=== PATIENT | female | born 1980 | race Caucasian/White ===

== ENCOUNTER 2017-07-29 03:11 | Emergency (ER) | payer OTHER ==
[~2017-07-29] VITALS: Ht 157.5 cm; Wt 113.4 kg
[2017-07-29] MEDS ORDERED: CHOL20002 PO (04:01)
[2017-07-29] MEDS ORDERED: AMIT25TA9 (04:01)
[2017-07-29] MEDS ORDERED: GABA-486 (04:01)
[2017-07-29] MEDS ORDERED: METH4TAB10 (04:01)
[2017-07-29] MEDS ORDERED: PROC10TA (04:01)
[2017-07-29] MEDS ORDERED: NORG1TAB14 (04:01)
[2017-07-29] MEDS ORDERED: SULF-222 (04:01)
[2017-07-29] MEDS ORDERED: PANT40TA3 (04:01)
[2017-07-29] MEDS ORDERED: LEVO25TA5 (04:01)
[2017-07-29] MEDS ORDERED: TIZA4TAB3 (04:01)
[2017-07-29] MEDS ORDERED: METF1000 (04:01)
[2017-07-29] MEDS ORDERED: ALPR0.5T7 (04:01)
[2017-07-29 04:25] LABS: BASOPHILS % (AUTO) 0 % (0-10); EOSINOPHILS # (AUTO) 0.2 10^3/uL (0.0-0.3); EOSINOPHILS % (AUTO) 2 % (0-10); LYMPHOCYTES # (AUTO) 1.8 X 10^3 (1.0-4.0); LYMPHOCYTES % (AUTO) 19 % (12-44); MEAN CORPUSCULAR HEMOGLOBIN 28 PG (25-34); MEAN CORPUSCULAR HGB CONC 32 G/DL (32-36); MEAN CORPUSCULAR VOLUME 85 FL (80-99); MEAN PLATELET VOLUME 9.9 FL (7.4-10.4); MONOCYTES # (AUTO) 0.8 X 10^3 (0.0-1.0); MONOCYTES % (AUTO) 8 % (0-12); NEUTROPHILS # (AUTO) 6.9 X 10^3 (1.8-7.8); NEUTROPHILS % (AUTO) 71 % (42-75); PLATELET COUNT 355 10^3/uL (130-400); RED BLOOD COUNT 3.93 10^6/uL (4.35-5.85); RED CELL DISTRIBUTION WIDTH 13.2 % (10.0-14.5); WHITE BLOOD COUNT 9.7 10^3/uL (4.3-11.0)
[2017-07-29 04:51] LABS: ANION GAP 11 MMOL/L (5-14); BLOOD UREA NITROGEN 16 MG/DL (7-18); BUN/CREATININE RATIO 19; CARBON DIOXIDE 21 MMOL/L (21-32); CHLORIDE 103 MMOL/L (98-107); CREATININE SERUM 0.83 MG/DL (0.60-1.30); POTASSIUM 4.1 MMOL/L (3.6-5.0); SODIUM 135 MMOL/L (135-145)
[2017-07-29 04:52] LABS: ALANINE AMINOTRANSFERASE 169 U/L (0-55); ALBUMIN 3.7 GM/DL (3.2-4.5); ASPARTATE AMINO TRANSFERASE 61 U/L (5-34); BILIRUBIN,TOTAL 0.4 MG/DL (0.1-1.0); CALCIUM 9.1 MG/DL (8.5-10.1); GFR ESTIMATED > 60; GLUCOSE 93 MG/DL (70-105); TOTAL PROTEIN 7.7 GM/DL (6.4-8.2)
[2017-07-29] MEDS ORDERED: LACTATED RINGERS 1,000 ML IV ONE (05:05)
--- NOTE | 2017-07-29 05:07 | ED Lower Extremity ---
General Chief Complaint: Lower Extremity Stated Complaint: LEFT LEG SWOLLEN,DISCOLORED,NUMB Nursing Triage Note: Pt amb to ED to report work about 16 hr shift and went during shift to [facility] for a steroid shot for sciatica left leg. Pt reports 0030 tonight noticed left leg looked swollen and deeper color/mottled appearance. Pt has taken a muscle relaxant [employer]. States left calf to foot feels numb/tingling. Nursing Sepsis Screen: No Definite Risk Source: patient Exam Limitations: no limitations History of Present Illness Time seen by provider: 04:57 Initial Comments Here With complaint of left leg pain that started within the last 24 hours. She 's been treated recently for sciatica symptoms including having Toradol shot which did not help. She states that her leg feels heavy and her leg feels numb. Also reports recently that she's had some shortness of breath with activity that would normally not make her short of breath and she is noted that her O2 sats have been dropping with activity and has gone down into the upper 80s. This is not normal for her. Denies chest pain specifically. Reports that her mother has history of DVT. She has never had blood clots before. She does take a baby aspirin because she was told her blood is thick. Onset: yesterday Severity: moderate Pain/Injury Location: left leg, left thigh Method of Injury: unknown Modifying Factors: Worse With Movement, Improves With Rest Allergies and Home Medications Allergies Coded Allergies: No Known Drug Allergies (Unverified , 07/29/17) Home Medications Alprazolam 0.5 Mg Tablet, (Reported) Amitriptyline HCl 25 Mg Tablet, (Reported) Cholecalciferol (Vitamin D3) 2,000 Unit Capsule, 2,000 UNIT PO DAILY, (Reported) Gabapentin 100 Mg Capsule, (Reported) Levothyroxine Sodium 25 Mcg Tablet, (Reported) Metformin HCl 1,000 Mg Tablet, (Reported) Methylprednisolone 4 Mg Tab.ds.pk, (Reported) Norgestimate-Ethinyl Estradiol 1 Each Tablet, (Reported) Pantoprazole Sodium 40 Mg Tablet.dr, (Reported) Prochlorperazine Maleate 10 Mg Tablet, (Reported) Sulfamethoxazole/Trimethoprim 1 Each Tablet, (Reported) Tizanidine HCl 4 Mg Tablet, (Reported) Constitutional: see HPI, No chills, No fever EENTM: see HPI Respiratory: see HPI, short of breath Cardiovascular: palpitations, No syncope Gastrointestinal: no symptoms reported Genitourinary: no symptoms reported Musculoskeletal: see HPI, muscle pain Skin: see HPI, change in color, No lesions Psychiatric/Neurological: No Symptoms Reported All Other Systems Reviewed Negative Unless Noted: Yes Past Hpkrrmt-Mneyqo-Okpdyy Hx Patient Social History Alcohol Use: Rarely Uses Recreational Drug Use: No Smoking Status: Never a Smoker 2nd Hand Smoke Exposure: No Recent Foreign Travel: No Contact w/Someone Who Travel: No Recent Infectious Disease Expo: No Recent Hopitalizations: No Seasonal Allergies Seasonal Allergies: No Surgeries History of Surgeries: Yes (L ovarian cyst w/ gangrene) Surgeries: Gallbladder, Oophorectomy, Tubal Ligation Respiratory History of Respiratory Disorde: No Cardiovascular History of Cardiac Disorders: No Neurological History of Neurological Disord: No Reproductive System Last Menstrual Period: Jul 28, 2017 Female Reproductive Disorders: Polycystic Ovarian Dis Genitourinary History of Genitourinary Disor: No Gastrointestinal History of Gastrointestinal Di: Yes Gastrointestinal Disorders: Gastroesophageal Reflux Musculoskeletal History of Musculoskeletal Dis: Yes (Sciatica) Endocrine History of Endocrine Disorders: Yes Endocrine Disorders: Hypothyroidsim HEENT History of HEENT Disorders: No Cancer History of Cancer: No Psychosocial History of Psychiatric Problem: No Integumentary History of Skin or Integumenta: No Reviewed Nursing Assessment Reviewed/Agree w Nursing PMH: Yes Family Medical History Significant Family History: No Pertinent Family Hx Physical Exam Vital Signs Vital Sign - Last 12Hours 07/29/17 03:36 Temp 97.2 Pulse 72 Resp 20 B/P (MAP) 117/81 Pulse Ox 97 O2 Delivery Room Air Capillary Refill : Less Than 3 Seconds General Appearance: WD/WN, no apparent distress HEENT: PERRL/EOMI, pharynx normal Neck: full range of motion, supple Cardiovascular: regular rate, rhythm, no murmur Respiratory: lungs clear, normal breath sounds Gastrointestinal: non tender, soft Legs: left leg non-tender, right leg normal inspection, right leg normal range of motion, right leg no evidence of injury, left leg swelling, left leg other ( swollen and slightly darker color than the other leg.) Knees: bilateral knee non-tender, bilateral knee normal inspection, bilateral knee normal range of motion, bilateral knee no evidence of injury Feet: bilateral foot other (bilateral posterior tibial and dorsalis pedis pulses equal and strong) Neurologic/Tendon: normal sensation, normal motor functions Neurologic/Psychiatric: alert, oriented x 3 Skin: warm/dry, other (color change to the left leg as described as above.) Progress/Results/Core Measures Results/Orders Lab Results Laboratory Tests Test 07/29/17 04:15 Range/Units White Blood Count 9.7 4.3-11.0 10^3/uL Red Blood Count 3.93 L 4.35-5.85 10^6/uL Hemoglobin 10.8 L 11.5-16.0 G/DL Hematocrit 34 L 35-52 % Mean Corpuscular Volume 85 80-99 FL Mean Corpuscular Hemoglobin 28 25-34 PG Mean Corpuscular Hemoglobin Concent 32 32-36 G/DL Red Cell Distribution Width 13.2 10.0-14.5 % Platelet Count 355 130-400 10^3/uL Mean Platelet Volume 9.9 7.4-10.4 FL Neutrophils (%) (Auto) 71 42-75 % Lymphocytes (%) (Auto) 19 12-44 % Monocytes (%) (Auto) 8 0-12 % Eosinophils (%) (Auto) 2 0-10 % Basophils (%) (Auto) 0 0-10 % Neutrophils # (Auto) 6.9 1.8-7.8 X 10^3 Lymphocytes # (Auto) 1.8 1.0-4.0 X 10^3 Monocytes # (Auto) 0.8 0.0-1.0 X 10^3 Eosinophils # (Auto) 0.2 0.0-0.3 10^3/uL Basophils # (Auto) 0.0 0.0-0.1 10^3/uL D-Dimer 3.22 H 0.00-0.49 UG/ML Sodium Level 135 135-145 MMOL/L Potassium Level 4.1 3.6-5.0 MMOL/L Chloride Level 103 98-107 MMOL/L Carbon Dioxide Level 21 21-32 MMOL/L Anion Gap 11 5-14 MMOL/L Blood Urea Nitrogen 16 7-18 MG/DL Creatinine 0.83 0.60-1.30 MG/DL Estimat Glomerular Filtration Rate > 60 BUN/Creatinine Ratio 19 Glucose Level 93 70-105 MG/DL Calcium Level 9.1 8.5-10.1 MG/DL Total Bilirubin 0.4 0.1-1.0 MG/DL Aspartate Amino Transf (AST/SGOT) 61 H 5-34 U/L Alanine Aminotransferase (ALT/SGPT) 169 H 0-55 U/L Alkaline Phosphatase 67 40-136 U/L Total Protein 7.7 6.4-8.2 GM/DL Albumin 3.7 3.2-4.5 GM/DL My Orders Orders - OLAF PIERRE MD Cbc With Automated Diff (07/29/17 04:04) Comprehensive Metabolic Panel (07/29/17 04:04) Fibrin Degradation Products (07/29/17 04:04) Saline Lock/Iv-Start (07/29/17 04:04) Us Venous Lower Ext Lt (07/29/17 04:56) Ct Angio Chest W (07/29/17 05:05) Lactated Ringers (Lr 1000 Ml Iv Solution (07/29/17 05:05) Apixaban Tablet (Eliquis Tablet) (07/29/17 06:30) Medications Given in ED Current Medications Medications Dose Ordered Sig/Wilmer Route Start Time Stop Time Status Last Admin Dose Admin Lactated Ringer's 1,000 ml @ 0 mls/hr Q0M ONCE IV 07/29/17 05:05 07/29/17 05:07 DC 07/29/17 05:56 999 MLS/HR Vital Signs/I&O Vital Sign - Last 12Hours 07/29/17 03:36 Temp 97.2 Pulse 72 Resp 20 B/P (MAP) 117/81 Pulse Ox 97 O2 Delivery Room Air Blood Pressure Mean: 93 Progress Note : Progress Note Seen and evaluated. IV and labs ordered. D-dimer grossly elevated. Ultrasound of left lower extremity ordered. CT angiogram chest ordered due to report of decreased O2 sats, higher heart rate and shortness of breath over the last couple of weeks. Lactated Ringer's 1 L bolus. Monitor patient. 0630: Bilateral pulmonary emboli noted on CT. I did discuss the case with Dr. Asher as for options of outpatient therapy. We will initiate Eliquis therapy at 10 mg and I will prescribe starter pack. Patient does not have findings of right heart strain on CT. Resting O2 sat is 9800 percent with heart rate of 72. 0700 I did discuss the findings and concerns with the patient. Ultrasound does not show a DVT on the left leg. The clot may be all within the long now. I did discuss extensively the risk and benefits of Eliquis including the risk of bleeding in the head, GI bleeding, urinary tract bleeding and generalized bleeding. We did discuss risk reduction strategies including limiting activities at would increase her risk for bleeding including for head injury and GI bleeds. I did instruct her to follow-up with her doctor this week for recheck and further evaluation and further prescription passed this month for her blood thinners. Patient verbalized understanding. Discharged home with return precautions. Patient verbalize understanding instructions and agreement with plan. Diagnostic Imaging Diagonstic Imaging: CT Plain Films/CT/US/NM/MRI: chest Comments Bilateral central, segmental and subsegmental pulmonary emboli. No saddle embolus. No right heart strain. Subpleural patchy groundglass opacities within the right upper lobe which may represent early pulmonary infarct. Installed findings of some centimeter mediastinal hilar lymph nodes. Heart and pericardium unremarkable. Upper abdomen demonstrates prior cholecystectomy. No acute osseous abnormality. Departure Impression Impression: Primary Impression: Pulmonary embolism Qualified Codes: I26.99 - Other pulmonary embolism without acute cor pulmonale Disposition: 01 HOME, SELF-CARE Condition: Stable Departure-Patient Inst. Decision time for Depature: 07:10 Referrals: KATRIN SCHULZ MD (PCP) Primary Care Physician EUGENE HARPER APRN (Family) Primary Care Physician Patient Instructions: Pulmonary Embolism (Blood Clot in the Lungs) (DC) Add. Discharge Instructions: All discharge instructions reviewed with patient and/or family. Voiced understanding. It is very important that he take your medicines as directed. Follow-up with your doctor this week for recheck and further evaluation and discuss further prescriptions related to the new findings of pulmonary embolism. You may need further evaluation including cardiac echocardiogram but you can discuss this with your doctor. Return for worse pain, fever, vomiting, weakness, breathing problems or other concerns as needed. Discussed with your doctor about continuing aspirin. Scripts Apixaban (Eliquis) 5 Mg Tablet 5 MG PO BID for 30 Days, #60 TAB Start this medicine after completing the 10 mg twice daily dosing for 7 days. Prov: OLAF PIERRE MD 07/29/17 Apixaban (Eliquis) 5 Mg Tablet 10 MG PO BID, #14 TAB 2 TABLETS TWICE DAILY X 7 DAYS Prov: OLAF PIERRE MD 07/29/17 OLAF PIERRE MD Jul 29, 2017 05:07
[2017-07-29] MEDS ORDERED: APIXABAN 5 MG (ELIQUIS) TABLET PO ONE (06:30)
[2017-07-29] MEDS ORDERED: APIX5TAB PO (07:18)
[2017-07-29 07:25] VITALS: BP 127/81
--- NOTE | 2017-07-29 08:22 | Diagnostic Imaging Report ---
PROCEDURE: US left lower extremity venous. TECHNIQUE: Multiple real-time grayscale images were obtained over the left lower extremity in various projections. Additional duplex Doppler and color Doppler images were also obtained. INDICATION: Leg pain and swelling There are no prior studies available for comparison. There is generally good blood flow and compressibility at all levels of the deep venous system. There is no evidence for deep venous thrombosis. IMPRESSION: There is no evidence for a deep venous thrombosis. Dictated by: Dictated on workstation # [id number]
--- NOTE | 2017-07-29 08:50 | Diagnostic Imaging Report ---
PROCEDURE: CT angiography of the chest with contrast. TECHNIQUE: Multiple contiguous axial images were obtained through the chest after uneventful bolus administration of intravenous contrast. Reconstructed CTA MIP acquisitions were also performed. INDICATION: Shortness of breath. There are no prior studies available for comparison. FINDINGS: There are bilateral central, segmental and subsegmental pulmonary emboli. The lungs are generally clear aside from a small wedge-shaped area of increased density along the periphery of the right upper lung. There are two other even smaller areas of increased density in the same area. These findings may be secondary to mild atelectasis/infiltrate. It would be less likely that they are related to early pulmonary infarct. There is no sign of a pleural effusion. The aorta is not abnormally dilated and the heart size is within normal limits. There are no coronary artery calcifications identified. There is no mediastinal or hilar adenopathy. The thyroid gland is generally unremarkable. There is no obvious breast mass. The sections through the upper abdomen show that the liver is of lower density than is usually seen. This does suggest fatty metamorphosis. There is no acute abnormality of the upper abdomen. The gallbladder is surgically absent. The bone windows are unremarkable for a fracture or for a destructive lesion. IMPRESSION: 1. There are bilateral pulmonary emboli. The small parenchymal densities in the right upper lobe may be secondary to mild pneumonia/atelectasis. The possibility that these are related to early pulmonary infarcts should also be considered. 2. There is no acute abnormality identified otherwise. 3. These results were conveyed to the ER by our [facility]. CRITICAL FINDING Dictated by: Dictated on workstation # [id number]
== END 2017-07-29 07:35 | disposition home or self-care (01) ==
LOC: EDUNIT# 03:11 → ER 03:19
DX: I26.99 Other pulmonary embolism without acute cor pulmonale (principal); K21.9 Gastro-esophageal reflux disease without esophagitis; E03.9 Hypothyroidism, unspecified; Z79.84 Long term (current) use of oral hypoglycemic drugs; Z98.51 Tubal ligation status; Z87.448 Personal history of other diseases of urinary system
CPT/HCPCS: 36415; 71275; 80053; 85025; 85379; 96360

== ENCOUNTER 2017-08-11 00:47 | Inpatient (IN) | payer OTHER ==
[~2017-08-11] VITALS: Ht 157.5 cm; Wt 115.3 kg
[~2017-08-11 00:47] MED LIST: ALPR0.5T7 PO; AMIT25TA9 PO; APIX5TAB PO; CHOL20002 PO; GABA-486 PO; LEVO25TA5 PO; METF1000 PO; METH4TAB10; NORG1TAB14 PO; PANT40TA3 PO; PROC10TA; SULF-222; TIZA4TAB3 PO
--- NOTE | 2017-08-11 01:11 | ED Lower Extremity ---
General Stated Complaint: POSS BLOOD CLOT IN LEFT LEG,SWOLLEN Source: patient, other Exam Limitations: no limitations History of Present Illness Time seen by provider: 01:01 Initial Comments Patient presents to ER by private conveyance from work where she says some time this evening she started developing swelling in her left lower extremity with firmness and pain to palpation over the medial anterior portion of her tibia. She says 2-3 weeks ago she was in the ER and diagnosed with a clot in the same leg that had went to her lungs. She was put on Eliquis which she has been taking. She says for the past couple days she's had some dull aches in the center of her chest which she assumed was just part of her resolving pulmonary embolism. She denies shortness of breath. She has no coronary history. No rash, diarrhea, nausea, vomiting, fever, chills. Allergies and Home Medications Allergies Coded Allergies: No Known Drug Allergies (Unverified , 07/29/17) Home Medications Alprazolam 0.5 Mg Tablet, (Reported) Amitriptyline HCl 25 Mg Tablet, (Reported) Apixaban 5 Mg Tablet, 10 MG PO BID, #14 2 TABLETS TWICE DAILY X 7 DAYS Prescribed by: OLAF PIERRE on 07/29/17 07 Apixaban 5 Mg Tablet, 5 MG PO BID for 30 Days, #60 Start this medicine after completing the 10 mg twice daily dosing for 7 days. Prescribed by: OLAF PIERRE on 07/29/1718 Cholecalciferol (Vitamin D3) 2,000 Unit Capsule, 2,000 UNIT PO DAILY, (Reported) Gabapentin 100 Mg Capsule, (Reported) Levothyroxine Sodium 25 Mcg Tablet, (Reported) Metformin HCl 1,000 Mg Tablet, (Reported) Methylprednisolone 4 Mg Tab.ds.pk, (Reported) Norgestimate-Ethinyl Estradiol 1 Each Tablet, (Reported) Pantoprazole Sodium 40 Mg Tablet.dr, (Reported) Prochlorperazine Maleate 10 Mg Tablet, (Reported) Tizanidine HCl 4 Mg Tablet, (Reported) Constitutional: No chills, No fever, No malaise EENTM: No ear discharge, No hearing loss Respiratory: No cough, No dyspnea on exertion, No short of breath Cardiovascular: see HPI, chest pain, No Hx of Intervention, No vascular heart diseas Gastrointestinal: No constipation, No diarrhea, No nausea, No vomiting Genitourinary: No discharge, No dysuria : No (tubal ligation and oophorectomy) Musculoskeletal: see HPI, No joint pain, No joint swelling, muscle pain (LLE), muscle stiffness Skin: No pruritus, No rash Psychiatric/Neurological: Denies Headache, Denies Numbness, Denies Paresthesia Past Pahjdyr-Pcbvda-Mdiczd Hx Patient Social History 2nd Hand Smoke Exposure: No Recent Foreign Travel: No Contact w/Someone Who Travel: No Recent Hopitalizations: No Seasonal Allergies Seasonal Allergies: No Surgeries History of Surgeries: Yes (L ovarian cyst w/ gangrene) Surgeries: Gallbladder, Oophorectomy, Tubal Ligation Respiratory History of Respiratory Disorde: No Cardiovascular History of Cardiac Disorders: No Neurological History of Neurological Disord: No Reproductive System Female Reproductive Disorders: Polycystic Ovarian Dis Genitourinary History of Genitourinary Disor: No Gastrointestinal History of Gastrointestinal Di: Yes Gastrointestinal Disorders: Gastroesophageal Reflux Musculoskeletal History of Musculoskeletal Dis: Yes (Sciatica) Endocrine History of Endocrine Disorders: Yes Endocrine Disorders: Hypothyroidsim HEENT History of HEENT Disorders: No Cancer History of Cancer: No Psychosocial History of Psychiatric Problem: No Integumentary History of Skin or Integumenta: No Family Medical History Significant Family History: No Pertinent Family Hx Physical Exam Vital Signs Vital Sign - Last 12Hours 08/11/17 01:06 Temp 98.7 Pulse 91 Resp 18 B/P (MAP) 164/103 Pulse Ox 99 O2 Delivery Room Air Capillary Refill : General Appearance: WD/WN, mild distress HEENT: PERRL/EOMI, pharynx normal Neck: non-tender, normal inspection Cardiovascular: normal peripheral pulses, regular rate, rhythm Respiratory: chest non-tender, lungs clear, normal breath sounds, no respiratory distress Gastrointestinal: normal bowel sounds, non tender, soft Back: normal inspection, no CVA tenderness Hips: bilateral hip non-tender, bilateral hip normal inspection, bilateral hip normal range of motion, bilateral hip no evidence of injury Legs: right leg non-tender, right leg normal inspection, bilateral leg normal range of motion, right leg no evidence of injury, left leg pain, left leg soft tissue tenderness, left leg swelling (firm, warm) Feet: bilateral foot other (capillary refill less than 3 seconds) Neurologic/Psychiatric: alert, normal mood/affect, oriented x 3 Skin: normal color, warm/dry Progress/Results/Core Measures Results/Orders Lab Results Laboratory Tests Test 08/11/17 01:20 Range/Units White Blood Count 12.1 H 4.3-11.0 10^3/uL Red Blood Count 4.03 L 4.35-5.85 10^6/uL Hemoglobin 10.9 L 11.5-16.0 G/DL Hematocrit 35 35-52 % Mean Corpuscular Volume 87 80-99 FL Mean Corpuscular Hemoglobin 27 25-34 PG Mean Corpuscular Hemoglobin Concent 31 L 32-36 G/DL Red Cell Distribution Width 13.9 10.0-14.5 % Platelet Count 487 H 130-400 10^3/uL Mean Platelet Volume 8.8 7.4-10.4 FL Neutrophils (%) (Auto) 71 42-75 % Lymphocytes (%) (Auto) 21 12-44 % Monocytes (%) (Auto) 5 0-12 % Eosinophils (%) (Auto) 3 0-10 % Basophils (%) (Auto) 1 0-10 % Neutrophils # (Auto) 8.6 H 1.8-7.8 X 10^3 Lymphocytes # (Auto) 2.6 1.0-4.0 X 10^3 Monocytes # (Auto) 0.6 0.0-1.0 X 10^3 Eosinophils # (Auto) 0.4 H 0.0-0.3 10^3/uL Basophils # (Auto) 0.1 0.0-0.1 10^3/uL Prothrombin Time 13.6 12.2-14.7 SEC INR Comment 1.0 0.8-1.4 Activated Partial Thromboplast Time 30 24-35 SEC Sodium Level 139 135-145 MMOL/L Potassium Level 3.6 3.6-5.0 MMOL/L Chloride Level 104 98-107 MMOL/L Carbon Dioxide Level 25 21-32 MMOL/L Anion Gap 10 5-14 MMOL/L Blood Urea Nitrogen 13 7-18 MG/DL Creatinine 0.78 0.60-1.30 MG/DL Estimat Glomerular Filtration Rate > 60 BUN/Creatinine Ratio 17 Glucose Level 96 70-105 MG/DL Calcium Level 9.0 8.5-10.1 MG/DL Total Bilirubin 0.7 0.1-1.0 MG/DL Aspartate Amino Transf (AST/SGOT) 37 H 5-34 U/L Alanine Aminotransferase (ALT/SGPT) 81 H 0-55 U/L Alkaline Phosphatase 85 40-136 U/L Total Protein 8.1 6.4-8.2 GM/DL Albumin 4.0 3.2-4.5 GM/DL My Orders Orders - REGINENIR Jeff Us Venous Lower Ext Lt (08/11/17 00:58) Cbc With Automated Diff (08/11/17 00:58) Comprehensive Metabolic Panel (08/11/17 00:58) Protime With Inr (08/11/17 00:58) Partial Thromboplastin Time (08/11/17 00:58) Saline Lock/Iv-Start (08/11/17 00:58) Heparin Drip [id number] Unit/500ml (Heparin (08/11/17 01:18) Heparin (Bolus Per Protocol) (Heparin (B (08/11/17 01:30) Ct Angio Chst/Abd/Pelv W (08/11/17 02:17) Ns Iv 1000 Ml (Sodium Chloride 0.9%) (08/11/17 02:20) Medications Given in ED Current Medications Medications Dose Ordered Sig/Wilmer Route Start Time Stop Time Status Last Admin Dose Admin Heparin Sodium (Porcine) 5,000 unit ONCE ONCE IV 08/11/17 01:30 08/11/17 01:31 DC 08/11/17 01:35 5,000 UNIT Heparin Sodium/ Dextrose 500 ml @ 0 mls/hr Q0M ONCE IV 08/11/17 01:18 08/11/17 01:20 DC 08/11/17 01:35 24 MLS/HR Sodium Chloride 1,000 ml @ 0 mls/hr Q0M ONCE IV 08/11/17 02:20 08/11/17 02:21 DC 08/11/17 03:27 0 MLS/HR Vital Signs/I&O Vital Sign - Last 12Hours 08/11/17 01:06 Temp 98.7 Pulse 91 Resp 18 B/P (MAP) 164/103 Pulse Ox 99 O2 Delivery Room Air Progress Note #1: Time: 02:09 Progress Note Nothing unexpected seen in her labs. She says she has plans for workup of her persistently elevated transaminases outpatient already. Her mild leukocytosis might be indicative of reforming thrombus. We'll obtain an ultrasound of her leg looking for a new clot and if positive we'll get a CTA chest. On the assumption that she might be having a recurrent pulmonary embolism despite anticoagulation we will start her also on a heparin drip. Progress Note #2: Time: 02:19 Progress Note She has no elevated white count but she's not got a clot in her leg. Defervesced some swelling in her leg does not look inflammatory or infectious. The flow in the venous Doppler was monophasic which makes me worry about an obstruction further up in the abdomen or chest. Her creatinine is 0.7 so we'll go ahead and obtain a CT angiogram of her chest abdomen and pelvis. Her liver enzymes are elevated as well. Diagnostic Imaging Diagonstic Imaging: Ultrasound Plain Films/CT/US/NM/MRI: leg (left) Comments No clot in the leg however monophasic flow indicates some further upstream obstruction. Negative for DVT. Soft tissue swelling. Reviewed: Reviewed [facility], Reviewed by Me Diagonstic Imaging: CT (angio) Plain Films/CT/US/NM/MRI: chest, abdomen, pelvis Comments Clot seen in the IVC extending into the left iliac. Read demonstration of pulmonary embolus in the slight interval decrease in the extent of tumor thrombosis burden bilaterally. No evidence for aortic dissection. No pericardial effusion or pleural effusion. Small mediastinal lymph nodes, unchanged chest and likely reactive area and tiny nodule in the superior segment of the right lower lobe unchanged and likely benign. Overall improved aeration with decreasing peripheral opacities in the right upper lobe. No new consolidation. Small hiatal hernia. Abdomen pelvis: Abdominal aorta demonstrates normal caliber without evidence for dissection. Suspect a nonocclusive thrombus in the central aspect of IVC is seen on coronal images 3839 series 11 area and is appears to partly extend the left common iliac vein. Slight heterogenous enhancement of the liver with focal wedge- shaped hyperenhancement in the anterior right hepatic lobe, nonspecific and may reflect perfusion anomaly. Follow-up is indicated. Prominent common bile duct likely related to prior cholecystectomy. No free fluid. Reviewed: Reviewed [facility], Reviewed by Me Departure Communication (Admissions) Time/Spoke to Admitting Phy: 04:[address] Barry and discussed the case, imaging, lab. Discussed the history of elevated liver enzymes the liver enhancement as well as the new clot seen in the IVC and subsequent swelling in the left leg. He is okay with 10 mg of warfarin now and continuing the heparin drip and he will see the patient. 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 Referrals: KATRIN SCHULZ MD (PCP) Primary Care Physician EUGENE HARPER APRN (Family) Primary Care Physician NIR WEINER Aug 11, 2017 01:11
[2017-08-11] MEDS ORDERED: HEParin DRIP 25000 UNIT/500ML 500 ML IV ONE (01:18)
[2017-08-11 01:29] LABS: BASOPHILS # (AUTO) 0.1 10^3/uL (0.0-0.1); BASOPHILS % (AUTO) 1 % (0-10); EOSINOPHILS # (AUTO) 0.4 10^3/uL (0.0-0.3); EOSINOPHILS % (AUTO) 3 % (0-10); LYMPHOCYTES # (AUTO) 2.6 X 10^3 (1.0-4.0); LYMPHOCYTES % (AUTO) 21 % (12-44); MEAN CORPUSCULAR HEMOGLOBIN 27 PG (25-34); MEAN CORPUSCULAR HGB CONC 31 G/DL (32-36); MEAN CORPUSCULAR VOLUME 87 FL (80-99); MEAN PLATELET VOLUME 8.8 FL (7.4-10.4); MONOCYTES # (AUTO) 0.6 X 10^3 (0.0-1.0); MONOCYTES % (AUTO) 5 % (0-12); NEUTROPHILS # (AUTO) 8.6 X 10^3 (1.8-7.8); NEUTROPHILS % (AUTO) 71 % (42-75); PLATELET COUNT 487 10^3/uL (130-400); RED BLOOD COUNT 4.03 10^6/uL (4.35-5.85); RED CELL DISTRIBUTION WIDTH 13.9 % (10.0-14.5); WHITE BLOOD COUNT 12.1 10^3/uL (4.3-11.0)
[2017-08-11] MEDS ORDERED: HEParin 1000 UNIT/ML (10ML VIAL) FOR BOLUS IV ONE (01:30)
[2017-08-11 01:35] LABS: PROTHROMBIN TIME PATIENT 13.6 SEC (12.2-14.7)
[2017-08-11 01:45] LABS: ALANINE AMINOTRANSFERASE 81 U/L (0-55); ANION GAP 10 MMOL/L (5-14); ASPARTATE AMINO TRANSFERASE 37 U/L (5-34); BILIRUBIN,TOTAL 0.7 MG/DL (0.1-1.0); BLOOD UREA NITROGEN 13 MG/DL (7-18); BUN/CREATININE RATIO 17; CARBON DIOXIDE 25 MMOL/L (21-32); CHLORIDE 104 MMOL/L (98-107); CREATININE SERUM 0.78 MG/DL (0.60-1.30); GFR ESTIMATED > 60; GLUCOSE 96 MG/DL (70-105); POTASSIUM 3.6 MMOL/L (3.6-5.0); SODIUM 139 MMOL/L (135-145); TOTAL PROTEIN 8.1 GM/DL (6.4-8.2)
[2017-08-11] MEDS ORDERED: NS IV 1000 ML 1,000 ML IV ONE (02:20)
[2017-08-11 05:05] VITALS: BP 125/81
[2017-08-11] MEDS ORDERED: ACETAMINOPHEN 500 MG TAB (TYLENOL) PO PRN ×2 (05:45→11:00)
[2017-08-11] MEDS ORDERED: HEParin DRIP 25000 UNIT/500ML (ACS THERAPY) IV SCH (05:45)
[2017-08-11] MEDS ORDERED: ONDANSETRON 4 MG/2 ML (SDV) Z0FRAN IV PRN (05:45)
[2017-08-11] MEDS ORDERED: warFARin 10 MG (COUMADIN) TAB PO ONE (05:45)
--- NOTE | 2017-08-11 05:53 | Diagnostic Imaging Report ---
PROCEDURE: US left lower extremity venous. INDICATION: Left lower extremity pain and swelling EXAMINATION: Grayscale and color Doppler evaluation of the deep veins of the left lower extremity were performed with waveform analysis. FINDINGS: Continuous venous flow is present. No intraluminal filling defect is identified. There is normal compressibility and response to augmentation. No abnormal perivascular fluid collection is identified. IMPRESSION: No ultrasound evidence of left lower extremity deep venous thrombosis. Dictated by: Dictated on workstation # [id number]
[2017-08-11] MEDS ORDERED: NS 100 ML (IVPB) BAG IV ONE (06:15)
[2017-08-11] MEDS ORDERED: IOHEXOL 350 MG/ML 150 ML (OMNIPAQUE 350) VIAL IV ONE (06:15)
[2017-08-11] MEDS ORDERED: INFLUENZA TRIvalent 2017-2018 0.5 ML/45 MCG SYR IM ONE (07:30)
[2017-08-11] MEDS ORDERED: CATHETER FLUSH 10 ML SYR IV PRN (07:45)
[2017-08-11 08:00] VITALS: BP 118/65
--- NOTE | 2017-08-11 08:43 | Diagnostic Imaging Report ---
PROCEDURE: CT angiography of the chest with contrast and CT abdomen and pelvis with contrast. TECHNIQUE: Multiple contiguous axial images were obtained through the chest, abdomen, and pelvis after administration of intravenous contrast. Reconstructed MIP CT angiography acquisitions of the aorta were then performed. INDICATION: Left leg swelling. CONTRAST: 145 mL of Omnipaque 350 was administered intravenously. COMPARISON: 07/29/2017. FINDINGS: CT ANGIOGRAM OF THE CHEST: There are bilateral pulmonary emboli involving the distal aspect of the left main pulmonary artery and the right lower lobe pulmonary artery extending to the segmental branches of the lower lobes on both sides. The PE is slightly improved when compared to the previous exam of 07/29/2017. There are still, however, significant emboli. There is no pleural or pericardial effusion. The thoracic aorta is normal in caliber. No dissection or aneurysm. The mediastinum demonstrates no mass or significant lymphadenopathy. No hilar lymphadenopathy. The axilla demonstrates no lymphadenopathy. The lungs demonstrate no significant consolidation or mass. There is a nonspecific nodular density along the upper aspect of the right major fissure measuring 5 mm in size, axial image 50, similar to the previous recent exam. No older exam to compare. The osseous structures demonstrate no significant abnormality. CT ANGIOGRAM OF THE ABDOMEN AND PELVIS: There are filling defects seen in the common iliac veins, particularly prominent in the left common iliac vein, with slight extension into the left internal iliac and minimal extension to the left external iliac veins. This appears to be largely nonocclusive. Minimal extension of the thrombus within the upper aspect of the right common iliac vein is seen. The thrombus extends within the IVC up to the renal veins level. The suprarenal IVC demonstrates no thrombus. The liver, spleen, pancreas, and adrenal glands appear unremarkable. Cholecystectomy clips are seen. The kidneys have symmetric enhancement and contrast excretion. There is no hydronephrosis. The abdominal aorta is normal in caliber. No periaortic significantly enlarged lymph node is seen. No pelvic free fluid or fluid collection is seen. Surgical clips are seen in the right adnexa. IMPRESSION: CTA CHEST: Minimally improved pulmonary emboli when compared to 07/29/2017. CTA ABDOMEN AND PELVIS: Partially occlusive thrombus involving the left internal iliac, left external iliac, left common iliac, and the right common iliac veins with extension into the IVC up to the level of the renal veins. This reading agrees with the [facility] report. Dictated by: Dictated on workstation # [id number]
[2017-08-11] MEDS ORDERED: APIX5TAB PO (10:21)
[2017-08-11] MEDS ORDERED: HYDR-3812 PO (10:23)
[2017-08-11] MEDS ORDERED: ACET-2267 PO (10:33)
--- NOTE | 2017-08-11 10:54 | History & Physical-Hospitalist ---
HPI History of Present Illness: HPI/Chief Complaint CC: Pulmonary embolism HPI: This is a [address] Almodovar who presented to ER with left leg, ankle , and foot swelling. CT chest showed minimally improved PE but extension of the DVT into the pelvis. Pharmacy Review: Pt was taking Eliquis. Pt has not yet been interviewed to whether or not she failed Eliquis treatment. 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 Pt denies SOB or jaw pain Leg was marked Pt does not have an Echo Pt denies smoking Pt on control Patient Interview: Pt confirms PCP as Dr. Almodovar, but sees a nurse practitioner at his [place] clinic. Pt confirms being in to the ER two weeks ago. Pt reports that she was given Eliquis for PE and took it twice daily. Pt states she stopped the hormones Pt confirms having swelling for a while after DC from ER. Pt states she was walking on it then the swelling worsened yesterday in her leg, ankle, and foot. Pt states she believed she has another clot so she returned and had a CT. Pt states she would rather be on Eliquis than Coumadin. 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 Pt denies need for pain meds currently. Pt states she was prescribed hydrocodone, but she only takes them when her pain is very bad. Pt states she generally takes Tylenol for her pain. Pt confirms family hx of blood clots on both sides Pt denies smoking and denies traveling recently Pt denies having previous blood clots Pt states she has 3 kids and had no problems when . Pt denies problems becoming . Pt states she had been on hormones for polycystic ovarian syndrome. Pt confirms being prescribed Sprintec by Dr. Anderson; he wanted the pt to take this for at least 4 months, which she states she completed. Physical exam stable. Lungs sound perfect. Pt denies heart or lung problems previously Pt expressed her worries about why she is having blood clots Pt confirms chest discomfort. Pt states that the ER doctor thought this was residual from the clots Pt was informed that a [employer] [facility] will be conferred with about failure of Eliquis Pt confirms having a previous EKG Mother confirms hx of blood clots and in family, and denies testing for blood clotting. Mother confirms having AFib Dr Cutler spoke to Dr Meek who will see the patient in consultation Dr Lakeshia gu with nurse at Dr Anderson's office. Scribed by Rosina Ramos under the direct supervision of Dr. Cutler. Source: patient, family Date Seen 08/11/17 Time Seen by Provider: 10:15 Attending Physician Sebastien Barry MD PCP Eron Almodovar MD Referring Physician Date of Admission Aug 11, 2017 at 04:45 Home Medications & Allergies Home Medications Reviewed patient Home Medication Reconciliation Form Allergies Allergies Coded Allergies No Known Drug Allergies (Unverified07/29/17) Past [id number]-Yldqdt Hx Patient Social History Marrital Status: Employed/Student: employed ([employer]) Alcohol Use: Denies Use Recreational Drug Use: No Smoking Status: Never a Smoker 2nd Hand Smoke Exposure: No Physical Abuse Screen: No Sexual Abuse: No Recent Foreign Travel: No Contact w/other who traveled: No Recent Hopitalizations: Yes (PE) Recent Infectious Disease Expo: No Immunizations Up To Date Tetanus Booster (TDap): Unknown Seasonal Allergies Seasonal Allergies: No Surgeries Yes (OVARIAN CYST) Gallbladder, Oophorectomy, Tubal Ligation Respiratory No Cardiovascular No Neurological No Reproductive System : No Female Reproductive Disorders: Polycystic Ovarian Dis Genitourinary No Gastrointestinal Yes Gastroesophageal Reflux Musculoskeletal Yes (Sciatica) Endocrine History of Endocrine Disorders: Yes Endocrine Disorders: Hypothyroidsim HEENT History of HEENT Disorders: No Cancer No Psychosocial History of Psychiatric Problem: No Integumentary History of Skin or Integumenta: No Blood Transfusions History of Blood Disorders: Yes Adverse Reaction to a Blood Tr: No Family Medical History Significant Family History: No Pertinent Family Hx Review of Systems Constitutional: see HPI EENTM: no symptoms reported Respiratory: dyspnea on exertion Cardiovascular: chest pain Gastrointestinal: no symptoms reported Genitourinary: no symptoms reported Musculoskeletal: joint pain, muscle stiffness, muscle cramps Skin: no symptoms reported Psychiatric/Neurological: No Symptoms Reported All Other Systems Reviewed Negative Unless Noted: Yes Physical Exam Physical Exam Vital Signs Vital Sign - Last 12Hours 08/11/17 01:06 Temp 98.7 Pulse 91 Resp 18 B/P (MAP) 164/103 Pulse Ox 99 O2 Delivery Room Air Capillary Refill : Less Than 3 Seconds General Appearance: No Apparent Distress, WD/WN, Obese Eyes: Bilateral Eye Normal Inspection, Bilateral Eye PERRL HEENT: PERRL/EOMI, Normal ENT Inspection, Pharynx Normal Neck: Full Range of Motion, Normal Inspection, Non Tender, Supple, Carotid Bruit Respiratory: Chest Non Tender, Lungs Clear, Normal Breath Sounds, No Accessory Muscle Use, No Respiratory Distress Cardiovascular: Regular Rate, Rhythm, No Edema, No Gallop, No JVD, No Murmur, Normal Peripheral Pulses Gastrointestinal: Normal Bowel Sounds, No Organomegaly, No Pulsatile Mass, Non Tender, Soft Back: Normal Inspection, No CVA Tenderness, No Vertebral Tenderness Extremity: Normal Capillary Refill, Normal Inspection, Calf Tenderness (left), Pedal Edema (left leg), Swelling (left) Neurologic/Psychiatric: Alert, Oriented x3, No Motor/Sensory Deficits, Normal Mood/Affect Skin: Normal Color, Warm/Dry Lymphatic: No Adenopathy Results Results/Procedures Lab Laboratory Tests 08/11/17 01:20 Assessment/Plan Admission Diagnosis Assessment: Worsened DVT left leg with no change in PE while on Eliquis BCP usage x 4 months but stopped 3 weeks ago when blood clot was dx FH of DVT PCOS managed by Dr Anderson and placed on BCP 4 months ago Obesity Assessment and Plan Plan: Echocardiogram Confer with Dr. Anderson Confer with Tailings Man Dr. Meek Heparin drip Coumadin? Diagnosis/Problems Diagnosis/Problems (1) Pulmonary embolism Status: Acute Qualifiers: Qualified Codes: I26.09 - Other pulmonary embolism with acute cor pulmonale (2) Embolism and thrombosis of left iliac vein Status: Acute (3) Currently on parenteral anticoagulation and warfarin overlap therapy Status: Acute (4) Inferior vena cava embolism Status: Acute (5) PCOS (polycystic ovarian syndrome) Status: Chronic (6) Obesity Status: Chronic Qualifiers: Clinical Quality Measures DVT/VTE Risk/Contraindication: Risk Factor Score Per Nursin RFS Level Per Nursing on Admit: 4+=Very High TERRANCE CUTLER DO Aug 11, 2017 10:54
[2017-08-11] MEDS ORDERED: GABAPENTIN 100 MG (NEURONTIN) CAP PO PRN (11:00)
[2017-08-11] MEDS ORDERED: ALPRAZolam 0.5 MG (XANAX) TAB PO PRN (11:00)
[2017-08-11] MEDS ORDERED: HYDROcodone/APAP 5 MG/325 MG (LORTAB) TAB PO PRN (11:30)
[2017-08-11 12:00] VITALS: BP 133/78
[2017-08-11 16:08] VITALS: BP 116/77
[2017-08-11 20:00] VITALS: BP 132/84
[2017-08-11] MEDS ORDERED: AMITRIPTYLINE 25 MG (ELAVIL) TAB PO SCH (21:00)
[2017-08-12] VITALS: BP 103/70
[2017-08-12 04:01] VITALS: BP 138/84
[2017-08-12] MEDS ORDERED: LEVOTHYROXINE 25 MCG (LEVOTHROID) TAB PO SCH (06:30)
[2017-08-12] MEDS ORDERED: PANTOPRAZOLE 40 MG (PROTONIX) TAB PO SCH (07:00)
[2017-08-12] MEDS ORDERED: VITAMIN D3 1,000 UNITS (CHOLECALCIFEROL) TABLET PO SCH (07:00)
[2017-08-12 07:31] VITALS: BP 129/86
--- NOTE | 2017-08-12 10:22 | CONSULTATION REPORT ---
DATE OF SERVICE: 08/11/2017 REFERRING AND PRIMARY PHYSICIAN: TERRANCE CUTLER DO The patient is admitted to room #424. IMPRESSION: A 36-year-old female admitted with: 1. Increased left lower extremity swelling and discomfort. 2. The patient diagnosed with PE on 07/29/2017 and started on anticoagulation with the Eliquis. 3. Lower extremity ultrasound was negative with no identifiable source of thrombus at that time. 4. At current admission, CT scan of the chest, abdomen and pelvis as per last lower extremity sonogram, completed. Angiogram of the chest showed evidence of PE, which is better than [address] scan of the abdomen and pelvis showed venous thrombosis in the left common iliac vein, extending into both internal and external iliac as well as up to the inferior vena cava till the renal veins. 5. Strong family history of thrombosis on both paternal and maternal side of family, rule out thrombophilia. 6. Previous use of control pills for the last 4 months for PCOS, which was stopped 2 weeks ago at the time of diagnosis of pulmonary embolus. 7. Obesity with the weight of 115 kilogram and BMI of approximately 45. 8. Elevated transaminases, most likely due to fatty infiltration of liver, which was seen in the current CT scan of the abdomen. RECOMMENDATIONS: 1. I will obtain factor II and factor V mutation analysis today to rule out thrombophilia. Still she is on anticoagulation, I will not be able to do the rest of the thrombophilia workup. 2. I had a lengthy discussion with the patient regarding resuming Eliquis versus continuing heparin and transitioning to warfarin. Because of her obesity, she is borderline with her weight as far as the use of Eliquis is concerned. 3. Current CT angiogram of the chest had shown improvement in the PE while she was on Eliquis and because of this reason, she could resume this. Since she had a break of a day, I would recommend restarting Eliquis at 10 mg b.i.d. x1 week and then 5 mg twice daily. 4. Because of the lower extremity pain, which is most likely due to phlebitis, I advised the patient to use NSAIDs for a few days to control this. I also advised her to use a light compression stocking to control the swelling. 5. I strongly advised the patient to avoid any control pills or hormonal agents in the future. 6. I also advised to start a diet and exercise program to reduce her weight and if this alone does not improve the fatty infiltration of liver, she may need other treatments for this. 7. I would like to [facility] approximately 2 months. If she is having any new or unusual symptoms prior to that, she was instructed to contact us. BRIEF HISTORY: The patient is a 36-year-old female who was diagnosed with a polycystic ovarian syndrome and started on control pills 4 months ago. Two weeks ago, she presented to the emergency room with shortness of breath and was found to have pulmonary embolism, but the source was not identified. She had a CT angiogram of the chest as well as bilateral lower extremity sonograms during that visit. She was started on anticoagulation with the Eliquis and discharged home. The patient was compliant with her medications, but on 08/10/2017, she started having increased swelling and discomfort in the left lower extremity and came back to the emergency room. This time, she had a CT angiogram of the chest as well as CT scan of the abdomen and pelvis as well as left lower extremity sonogram. The left lower extremity sonogram did not show any evidence of thrombosis. CT angiogram of the chest showed a previously seen PEs, which were slightly better. CT scan of the abdomen and pelvis showed evidence of thrombosis in the left common iliac vein extending to the left internal and external iliac veins as well as in to the inferior vena cava up to the level of the renal veins. There was no complete obstruction and flow was noted. Because of the question of failure to Eliquis, she was admitted and started on heparin nomogram. Hematology consultation was obtained for further recommendations. PAST MEDICAL HISTORY: Significant for hypothyroidism for which she is taking replacement. She has history of gastroesophageal reflux and uses [id number] medications for this. She was diagnosed with the polycystic right ovary and started on control pills 4 months ago. She has had previous left oophorectomy in the past. PAST SURGICAL HISTORY: Other surgeries include a cholecystectomy and a tubal ligation. FAMILY HISTORY: Significant for her mother who had thrombosis at the age of 41 years and had a CVA at the later age, probably related to atrial fibrillation. Both her maternal grandparents had thrombosis, but patient does not know the details of this. Paternal grandmother had DVT, but patient does not remember at what age this happened. Her first cousin on the paternal side of family had DVT while in his late 30s. SOCIAL HISTORY: The patient is and lives in [place], [place]. She has 3 children; a son aged 19 years, a daughter aged 18 years and another son aged 14 years. The 14-year-old lives with her at home. 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 She denied any tobacco use. No alcohol or other recreational drug use. PHYSICAL EXAMINATION: GENERAL: Today, showed a young female, obese, anxious, but otherwise in no acute distress. VITAL SIGNS: Temperature was 97.8, pulse rate of 74, respirations 20, blood pressure 118/65 with the oxygen saturation of 97% on room air. Her height was 157.48 cm and weight was 115.3 kilograms with a BSA of 2.32 and BMI of 46.5 kg/m2. HEENT: Normocephalic, extraocular muscles intact, conjunctivae pink, oral mucosa moist. NECK: Supple with no JVD. No cervical, supraclavicular or axillary lymphadenopathy palpable. CHEST: Symmetrical. LUNGS: Fairly clear to auscultation without wheezes or rales. CARDIOVASCULAR: Regular in rate and rhythm without murmurs or gallops. ABDOMEN: Obese, soft, nontender with no hepatosplenomegaly or other masses palpable. EXTREMITIES: Showed 2+ edema of the left lower extremity without erythema. There was no increased warmth on touch. There is tenderness in the left leg without any cords palpable. Rest of the extremities showed no edema. NEUROLOGICAL: Showed no focal motor deficits. LABORATORY WORK: CBC done today showed WBC 12.1, hemoglobin 10.9, MCV 87, platelet count 487,000 with neutrophil count of 8.6. Chemistry panel showed normal electrolytes. BUN was 13 and creatinine 0.78 with GFR more than 60 mL per minute. AST was elevated at 37 and ALT was elevated at 81 with rest of the liver function studies within normal limits. ProTime done last night at the emergency room had shown to be normal at 13.6 with an INR of 1.0 and PTT was normal at 30. CT angiogram of the chest as well as abdomen and pelvis done yesterday at the emergency room was reviewed. CT angiogram of the chest showed bilateral pulmonary emboli involving the distal aspect of left main pulmonary artery and the right lower lobe pulmonary artery. There is minimal improvement when compared to the CT angiogram from 07/29/2017. CT angiogram of the abdomen and pelvis showed partially occlusive thrombus involving the left internal iliac, left external iliac, left common iliac, and the right common iliac veins with extension into the IVC up to the level of renal veins. Venous Doppler study done at the emergency room yesterday of the left lower extremity showed no evidence of left lower extremity DVT. Continuous venous flow was present. CT angiogram of the chest done on 07/29/2017 showed bilateral pulmonary emboli. There was a small wedge shaped area of increased density and on the periphery of the right upper lung. Two small areas of increased density in the same area, which could be secondary to mild atelectasis or infiltrate or early pulmonary infarct. Section through the upper abdomen showed liver of lower density, suggestive of fatty metamorphosis. No other acute abnormality and gallbladder was surgically absent. Thank for allowing me to participate in this patient's care. Job ID: [id number] DocumentID: [id number] Dictated Date: 08/11/2017 14:39:00 Social Science Professor Date: 08/12/2017 00:56:24 Dictated By: TRUE TANG MD
[2017-08-12] MEDS ORDERED: IBUP-1779 PO (11:06)
[2017-08-12] MEDS ORDERED: APIX5TAB PO (11:06)
--- NOTE | 2017-08-12 11:21 | Discharge Summary-Hospitalist ---
Diagnosis/Chief Complaint Date of Admission Aug 11, 2017 at 04:45 Date of Discharge Discharge Date: Aug 12, 2017 Admission Diagnosis Assessment: Worsened DVT left leg with interval improvement PE while on Eliquis Discharge Diagnosis (1) Pulmonary embolism Status: Acute (2) Embolism and thrombosis of left iliac vein Status: Acute (3) Currently on parenteral anticoagulation and warfarin overlap therapy Status: Resolved (4) Inferior vena cava embolism Status: Acute (5) PCOS (polycystic ovarian syndrome) Status: Chronic (6) Obesity Status: Chronic Discharge Summary Consultations Hematology- Dr. Tang Discharge Physical Examination Allergies: Coded Allergies: No Known Drug Allergies (Unverified , 07/29/17) Vitals & I&Os Vital Signs Date Time Temp Pulse Resp B/P (MAP) Pulse Ox O2 Delivery O2 Flow Rate FiO2 08/12/17 08:20 Room Air 08/12/17 07:31 97.7 71 20 129/86 94 Hospital Course Pt is a 36yoCF with a recently diagnosed PE and DVT while on OCP who presented to the ER with worsening left leg pain while on eliquis. She had been off OCP since her diagnosis. Repeat CT Chest/Abd/Pelvis performed which showed persistent though improved PE and lower extremity thrombus extending to IVC. She was admitted and placed on Warfarin and Heparin. Hematology was consulted who recommended switching to Eliquis 10mg BID for 1 week followed by 5mg BID. A hypercoag panel was drawn and results are pending at this time. She was discharged home in stable condition. Labs (last 24 hrs) Laboratory Tests 08/11/17 15:45: 08/12/17 06:31: Activated Partial Thromboplast Time 66H Pending Labs Laboratory Tests 08/12/17 06:31: Activated Partial Thromboplast Time 66 Discharge Home Medications: Active Scripts Active Ibuprofen 400 Mg Tablet 400 Mg PO Q6H PRN Eliquis (Apixaban) 5 Mg Tablet 10 Mg PO BID 10mg BID for 1 week then 5mg BID after Reported Tylenol Extra Strength (Acetaminophen) 500 Mg Tablet 1,000 Mg PO Q6H PRN Hydrocodon -Acetaminophen 5-325 (Hydrocodone/Acetaminophen) 1 Each Tablet 1-2 Tab PO Q6H PRN Vitamin D-3 (Cholecalciferol (Vitamin D3)) 2,000 Unit Capsule 2,000 Unit PO HS Tizanidine HCl 4 Mg Tablet 4-8 Mg PO Q8H PRN Gabapentin 100 Mg Capsule 100-300 Mg PO TID PRN Alprazolam 0.5 Mg Tablet 0.5 Mg PO BID PRN Levothyroxine Sodium 25 Mcg Tablet 25 Mcg PO DAILY Amitriptyline HCl 25 Mg Tablet 25 Mg PO HS Pantoprazole Sodium 40 Mg Tablet.dr 40 Mg PO DAILY Instructions to patient/family Please see electronic discharge instructions given to patient. Clinical Quality Measures DVT/VTE Risk/Contraindication: Risk Factor Score Per Nursin RFS Level Per Nursing on Admit: 4+=Very High Copy Copies To 1: KATRIN SCHULZ MD; TRUE TANG Problem Qualifiers (1) Pulmonary embolism: Pulmonary embolism type: other Chronicity: acute Acute cor pulmonale presence: without acute cor pulmonale Qualified Codes: I26.99 - Other pulmonary embolism without acute cor pulmonale (2) Obesity: Obesity type: due to excess calories Obesity classification: adult class 3 ( BMI >= 40) Body mass index: BMI 45.0-49.9 MARCIO NUNEZ MD Aug 12, 2017 11:21
--- NOTE | 2017-08-12 11:23 | Discharge Instructions ---
Discharge Instructions Discharge Medications New, Converted or Re-Newed RX: Transmitted to Pharmacy Patient Instructions Patient Instructions: Please continue to take your medications as prescribed. Please excuse pt from work through the next week ( 08/12-08/20) until she has been evaluated by her PCP and then she will likely need to return emergency department coordinator. Return to The Hospital For: Worsening pain, SOB, discoloration of leg. Activity & Diet Discharge Diet: Regular Diet Activity as Tolerated: Yes MARCIO NUNEZ MD Aug 12, 2017 11:23
[2017-08-12] MEDS ORDERED: APIXABAN 5 MG (ELIQUIS) TABLET PO NR (11:30)
[2017-08-12 11:52] VITALS: BP 119/83
== END 2017-08-12 12:45 | disposition home or self-care (01) | DRG 175 ==
LOC: EDUNIT# 00:47 → ER 00:49 → 4TH 04:45
PROVIDERS: ADMIT Internal Medicine; ATTEND Internal Medicine
DX: I26.99 Other pulmonary embolism without acute cor pulmonale (principal); I82.220 Acute embolism and thrombosis of inferior vena cava; I82.422 Acute embolism and thrombosis of left iliac vein; Z68.42 Body mass index [BMI] 45.0-49.9, adult; E28.2 Polycystic ovarian syndrome; K76.0 Fatty (change of) liver, not elsewhere classified; K21.9 Gastro-esophageal reflux disease without esophagitis; E03.9 Hypothyroidism, unspecified; K44.9 Diaphragmatic hernia without obstruction or gangrene; E66.9 Obesity, unspecified; Z79.01 Long term (current) use of anticoagulants; Z90.721 Acquired absence of ovaries, unilateral; Z84.89 Family history of other specified conditions
CPT/HCPCS: 36415; 71275; 74174; 80053; 81240; 81241; 85025; 85610; 85730; 93306

== ENCOUNTER 2017-09-06 09:12 | Outpatient (RCR) | payer OTHER ==
[~2017-09-06 09:12] MED LIST changes: +ACET-2267 PO; +ACHD5005 PO; +IBUP-1779 PO
[2017-09-06 09:51] LABS: BASOPHILS # (AUTO) 0.1 10^3/uL (0.0-0.1); BASOPHILS % (AUTO) 1 % (0-10); EOSINOPHILS # (AUTO) 0.2 10^3/uL (0.0-0.3); EOSINOPHILS % (AUTO) 3 % (0-10); HEMATOCRIT 39 % (35-52); HEMOGLOBIN 12.3 G/DL (11.5-16.0); LYMPHOCYTES # (AUTO) 1.8 X 10^3 (1.0-4.0); LYMPHOCYTES % (AUTO) 27 % (12-44); MEAN CORPUSCULAR HEMOGLOBIN 27 PG (25-34); MEAN CORPUSCULAR HGB CONC 32 G/DL (32-36); MEAN CORPUSCULAR VOLUME 86 FL (80-99); MEAN PLATELET VOLUME 9.1 FL (7.4-10.4); MONOCYTES # (AUTO) 0.3 X 10^3 (0.0-1.0); MONOCYTES % (AUTO) 5 % (0-12); NEUTROPHILS # (AUTO) 4.1 X 10^3 (1.8-7.8); NEUTROPHILS % (AUTO) 64 % (42-75); PLATELET COUNT 375 10^3/uL (130-400); RED BLOOD COUNT 4.56 10^6/uL (4.35-5.85); RED CELL DISTRIBUTION WIDTH 13.9 % (10.0-14.5); WHITE BLOOD COUNT 6.4 10^3/uL (4.3-11.0)
[2017-09-06 10:10] LABS: ALANINE AMINOTRANSFERASE 53 U/L (0-55); ALBUMIN 4.1 GM/DL (3.2-4.5); ALKALINE PHOSPHATASE 67 U/L (40-136); BILIRUBIN,TOTAL 0.5 MG/DL (0.1-1.0); BUN/CREATININE RATIO 15; CALCIUM 9.2 MG/DL (8.5-10.1); CARBON DIOXIDE 25 MMOL/L (21-32); CHLORIDE 106 MMOL/L (98-107); CREATININE SERUM 0.78 MG/DL (0.60-1.30); GFR ESTIMATED > 60; GLUCOSE 94 MG/DL (70-105); SODIUM 141 MMOL/L (135-145); TOTAL PROTEIN 7.7 GM/DL (6.4-8.2)
[2017-11-28] MEDS ORDERED: CEFD300C3 PO (22:11)
[2017-11-28] MEDS ORDERED: METH4TAB PO (22:11)
[2017-11-28] MEDS ORDERED: GUAI1TBM19 PO (22:11)
[2017-11-28] MEDS ORDERED: RT-ALBUINH IH (22:11)
== END 2017-12-05 | disposition home or self-care (01) ==
LOC: ONC 09:12
PROVIDERS: ATTEND Internal Medicine Hematology & Oncology
DX: I26.99 Other pulmonary embolism without acute cor pulmonale (principal); I82.220 Acute embolism and thrombosis of inferior vena cava; I82.422 Acute embolism and thrombosis of left iliac vein; E03.9 Hypothyroidism, unspecified; Z79.01 Long term (current) use of anticoagulants; Z90.721 Acquired absence of ovaries, unilateral
CPT/HCPCS: 36415; 80053; 85025; 99213

== ENCOUNTER 2017-11-28 19:54 | Emergency (ER) | payer OTHER ==
[~2017-11-28] VITALS: Ht 157.5 cm; Wt 113.4 kg
[2017-11-28 20:42] LABS: BASOPHILS % (AUTO) 0 % (0-10); EOSINOPHILS # (AUTO) 0.2 10^3/uL (0.0-0.3); EOSINOPHILS % (AUTO) 2 % (0-10); HEMATOCRIT 35 % (35-52); HEMOGLOBIN 11.4 G/DL (11.5-16.0); LYMPHOCYTES # (AUTO) 1.9 X 10^3 (1.0-4.0); LYMPHOCYTES % (AUTO) 21 % (12-44); MEAN CORPUSCULAR HEMOGLOBIN 27 PG (25-34); MEAN CORPUSCULAR HGB CONC 32 G/DL (32-36); MEAN CORPUSCULAR VOLUME 85 FL (80-99); MEAN PLATELET VOLUME 9.2 FL (7.4-10.4); MONOCYTES # (AUTO) 0.6 X 10^3 (0.0-1.0); MONOCYTES % (AUTO) 6 % (0-12); NEUTROPHILS # (AUTO) 6.1 X 10^3 (1.8-7.8); NEUTROPHILS % (AUTO) 70 % (42-75); PLATELET COUNT 433 10^3/uL (130-400); RED BLOOD COUNT 4.16 10^6/uL (4.35-5.85); RED CELL DISTRIBUTION WIDTH 13.7 % (10.0-14.5); WHITE BLOOD COUNT 8.8 10^3/uL (4.3-11.0)
[2017-11-28] MEDS ORDERED: ASPIRIN 81 MG CHEW (CHILDREN'S ASA) PO ONE (20:45)
[2017-11-28 20:49] LABS: PROTHROMBIN TIME PATIENT 12.8 SEC (12.2-14.7)
[2017-11-28 20:57] LABS: ALANINE AMINOTRANSFERASE 74 U/L (0-55); ALBUMIN 3.9 GM/DL (3.2-4.5); ALKALINE PHOSPHATASE 86 U/L (40-136); BILIRUBIN,TOTAL 0.4 MG/DL (0.1-1.0); BUN/CREATININE RATIO 8; CALCIUM 8.9 MG/DL (8.5-10.1); CARBON DIOXIDE 23 MMOL/L (21-32); CHLORIDE 104 MMOL/L (98-107); CREATININE SERUM 0.83 MG/DL (0.60-1.30); GFR ESTIMATED > 60; GLUCOSE 101 MG/DL (70-105); MAGNESIUM 2.1 MG/DL (1.8-2.4); POTASSIUM 3.8 MMOL/L (3.6-5.0); SODIUM 139 MMOL/L (135-145)
[2017-11-28] MEDS ORDERED: CATHETER FLUSH 10 ML SYR IV PRN (21:15)
[2017-11-28] MEDS ORDERED: IOHEXOL 350 MG/ML 150 ML (OMNIPAQUE 350) VIAL IV ONE (21:15)
--- NOTE | 2017-11-28 21:25 | Diagnostic Imaging Report ---
INDICATION: Left lower chest pain PA and lateral chest Heart size and pulmonary vascularity are normal. Lungs are clear. There are no effusions or pneumothoraces. IMPRESSION: Negative chest Dictated by: Dictated on workstation # [id number]
--- NOTE | 2017-11-28 21:41 | Diagnostic Imaging Report ---
PROCEDURE: CT angiography of the chest with contrast. TECHNIQUE: Multiple contiguous axial images were obtained through the chest after uneventful bolus administration of intravenous contrast. Reconstructed CTA MIP acquisitions were also performed. INDICATION: Chest pain, shortness of breath. FINDINGS: There is a small patchy infiltrate at the left posterior lung base. Lungs are otherwise clear. There are no effusions or pneumothoraces. There is no hilar or mediastinal lymphadenopathy. Aorta appears normal. Heart size is normal. There are no pulmonary emboli. IMPRESSION: Small patchy infiltrate at the left posterior lung base could be pneumonia. Dictated by: Dictated on workstation # [id number]
[2017-11-28] MEDS ORDERED: methylPREDNISolone 125 MG (Solu-MEDROL) VIAL IV STA (21:46)
[2017-11-28] MEDS ORDERED: RX-ALBUTEROL INHALER (PROAIR) 8 GM IH ONE (22:00)
[2017-11-28] MEDS ORDERED: cefTRIAXone INJECTION 1,000 MG in D5W 50 ML IVPB SOLUTION 50 ML IV ONE (22:00)
[2017-11-28] MEDS ORDERED: RT-ALBUINH IH (22:11)
[2017-11-28] MEDS ORDERED: CEFD300C3 PO (22:11)
[2017-11-28] MEDS ORDERED: METH4TAB PO (22:11)
[2017-11-28] MEDS ORDERED: GUAI1TBM19 PO (22:11)
--- NOTE | 2017-11-28 22:12 | ED Respiratory ---
General Chief Complaint: Respiratory Problems Stated Complaint: SOB, L SIDE PAIN OF CHEST, HX BLOOD CLOTS Nursing Triage Note: PT REPORTS SHE HAS BEEN HAVING SOA WITH EXERTION THROUGHOUT THE DAY TODAY. SHE IS ALSO C/O CHEST PAIN UNDER HER L BREAST THAT IS WORSE WITH INSPIRATION. PT DOES HAVE HX OF PE'S. SHE STATES SHE HAS TAKEN HER SPO2 AT HOME, AND WHILE RESTING SPO2 WAS IN THE UPPER 90'S, BUT WITH EXERTION WOULD DROP LOW THE 70'S. Source: patient History of Present Illness Date Seen by Provider: Nov 28, 2017 Time Seen by Provider: 20:35 Initial Comments PT ARRIVES VIA POV FROM HOME C/O SHORTNESS OF BREATH X 5-6 DAYS . DOES NOT FEEL SHORT OF BREATH NOW. C/O LEFT MID AND LOWER STERNAL AND ANTERIOR/LATERAL LOWER RIB PAIN WITH DEEP BREATHS SYMPTOMS WORSE WHEN LAYING FLAT HAS HAD A MILD NON-PRODUCTIVE COUGH TODAY NO FEVER OR SWEATS STATES SHE HAS PULSE OXIMETER, AND O2 SATS DROP TO 70'S -80'S WITH EXERTION AND THEN BACK UP TO 90'S AT REST PT STATES SHE HAS HISTORY OF DVT IN LEFT LEG WITH P.E. DX IN JUL 2017. IS ON ELIQUIS. 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 PT STATES SHE OCCASIONALLY HAS MILD SWELLING OF LEFT LEG, OFF AND ON, USUALLY AFTER STANDING FOR LONG PERIODS OF TIME. BUT NOT SWOLLEN NOW. PT ANXIOUS AND CONCERNED ABOUT ANOTHER P.E. PCP: SEES TJ HARPER AT [facility] IN [place] [facility]: DR. TANG. Allergies and Home Medications Allergies Coded Allergies: No Known Drug Allergies (Unverified , 07/29/17) Home Medications Acetaminophen 500 Mg Tablet, 1,000 MG PO Q6H PRN for PAIN-MILD, (Reported) Albuterol Sulfate 1 Puff Puff, 2 PUFF IH Q4H, #1 Prescribed by: MANNY PHAN on 11/28/17 2211 Alprazolam 0.5 Mg Tablet, 0.5 MG PO BID PRN for ANXIETY, (Reported) Amitriptyline HCl 25 Mg Tablet, 25 MG PO HS, (Reported) Apixaban 5 Mg Tablet, 10 MG PO BID, #70 10mg BID for 1 week then 5mg BID after Prescribed by: MARCIO NUNEZ on 08/12/17 1106 Cefdinir 300 Mg Capsule, 300 MG PO BID, #20 Prescribed by: MANNY PHAN on 11/28/17 2211 Cholecalciferol (Vitamin D3) 2,000 Unit Capsule, 2,000 UNIT PO HS, (Reported) Gabapentin 100 Mg Capsule, 100-300 MG PO TID PRN for NERVE PAIN, (Reported) Guaifenesin/Dextromethorphan 1 Each Tbmp.12hr, 1 EACH PO BID for 10 Days, #20 Prescribed by: MANNY PHAN on 11/28/171 Hydrocodone Bit/Acetaminophen 1 Each Tablet, 1-2 TAB PO Q6H PRN for PAIN- MODERATE, (Reported) Ibuprofen 400 Mg Tablet, 400 MG PO Q6H PRN for PAIN, #30 Prescribed by: MARCIO NUNEZ on 08/12/17 1106 Levothyroxine Sodium 25 Mcg Tablet, 25 MCG PO DAILY, (Reported) Methylprednisolone 4 Mg Tab.ds.pk, 4 MG PO UD, #1 Prescribed by: MANNY PHAN on 11/28/172210 Pantoprazole Sodium 40 Mg Tablet.dr, 40 MG PO DAILY, (Reported) Tizanidine HCl 4 Mg Tablet, 4-8 MG PO Q8H PRN for MUSCLE SPASMS, (Reported) Constitutional: no symptoms reported, No chills, No diaphoresis, No dizziness, No fever EENTM: no symptoms reported Respiratory: see HPI, cough, dyspnea on exertion, orthopnea, short of breath, No wheezing Cardiovascular: see HPI, chest pain, edema, No palpitations, No syncope, No vascular heart diseas Gastrointestinal: no symptoms reported Genitourinary: no symptoms reported : No LMP: Oct 10, 2017 (NORMAL PERIOD IN . 4 DAY PERIOD IN OCTOBER. NORMAL FOR PT) Musculoskeletal: see HPI Skin: no symptoms reported Psychiatric/Neurological: See HPI, Anxiety Hematologic/Lymphatic: See HPI, Blood Clots Immunological/Allergic: no symptoms reported Past Dvphfse-Eiiwow-Mcvqtb Hx Patient Social History Alcohol Use: Denies Use Recreational Drug Use: No Smoking Status: Never a Smoker 2nd Hand Smoke Exposure: No Recent Foreign Travel: No Contact w/Someone Who Travel: No Recent Infectious Disease Expo: No Recent Hopitalizations: No Immunizations Up To Date Tetanus Booster (TDap): Unknown Seasonal Allergies Seasonal Allergies: No Surgeries History of Surgeries: Yes (7# LEFT OVARIAN CYST + LEFT OOPHORECTOMY 2000; LATER RIGHT TUBAL LIGATION) Surgeries: Gallbladder, Oophorectomy, Tubal Ligation Respiratory History of Respiratory Disorde: Yes Respiratory Disorders: Pulmonary Embolism Cardiovascular History of Cardiac Disorders: Yes Cardiac Disorders: Deep Vein Thrombosis Neurological History of Neurological Disord: Yes (NEUROPATHY IN FEET) Neurological Disorders: Neuropathy Reproductive System : No Female Reproductive Disorders: Menstrual Problems, Ovarian Cyst, Polycystic Ovarian Dis Genitourinary History of Genitourinary Disor: No Gastrointestinal History of Gastrointestinal Di: Yes Gastrointestinal Disorders: Gastroesophageal Reflux Musculoskeletal History of Musculoskeletal Dis: Yes (Sciatica) Musculoskeletal Disorders: Chronic Back Pain Endocrine History of Endocrine Disorders: Yes (PCOS, INSULIN RESISTANCE, OBESTITY, VITAMIN D DEFICIENCY) Endocrine Disorders: Hypothyroidsim, Diabetes, Non-Insulin dep HEENT History of HEENT Disorders: No Cancer History of Cancer: No Psychosocial History of Psychiatric Problem: No Integumentary History of Skin or Integumenta: No Blood Transfusions History of Blood Disorders: Yes (FACTOR 2 CLOTTING DISORDER;LEFT LEG DVT AND P.E. 07/2017) Adverse Reaction to a Blood Tr: No Family Medical History Significant Family History: No Pertinent Family Hx Physical Exam Vital Signs Vital Sign - Last 12Hours 11/28/17 20:30 Temp 97.3 Pulse 109 Resp 16 B/P (MAP) 135/99 (111) Pulse Ox 100 O2 Delivery Room Air Capillary Refill : Less Than 3 Seconds General Appearance: no apparent distress, obese, other (ANXIOUS, TEARFUL) HEENT: PERRL/EOMI Neck: non-tender, full range of motion, supple, normal inspection Respiratory: normal breath sounds, no respiratory distress, no accessory muscle use, other (LEFT PARASTERNAL TENDERNESS, LEFT LOWER ANTERIOR AND LATERAL RIB TENDERNESS) Cardiovascular: regular rate, rhythm (HR 100-105), no edema, no JVD Gastrointestinal: soft Extremities: normal inspection, no pedal edema, no calf tenderness, normal capillary refill Neurologic/Psychiatric: registered midwife II-XII nml as tested, no motor/sensory deficits, alert, oriented x 3 Skin: normal color, warm/dry Progress/Results/Core Measures Suspected Sepsis Recent Fever Within 48 Hours: No Infection Criteria Present: None New/Unexplained Altered Menta: No Sepsis Screen: No Definite Risk Sepsis Diagnosis: SIRS Temperature:97.3 Pulse: 109 Respiratory Rate: 16 Laboratory Tests 11/28/17 20:35: White Blood Count 8.8 Blood Pressure 135 /99 Mean: 111 Laboratory Tests 11/28/17 20:35: Creatinine 0.83, INR Comment 1.0, Platelet Count 433H, Total Bilirubin 0.4 Results/Orders Lab Results Laboratory Tests Test 11/28/17 20:35 Range/Units White Blood Count 8.8 4.3-11.0 10^3/uL Red Blood Count 4.16 L 4.35-5.85 10^6/uL Hemoglobin 11.4 L 11.5-16.0 G/DL Hematocrit 35 35-52 % Mean Corpuscular Volume 85 80-99 FL Mean Corpuscular Hemoglobin 27 25-34 PG Mean Corpuscular Hemoglobin Concent 32 32-36 G/DL Red Cell Distribution Width 13.7 10.0-14.5 % Platelet Count 433 H 130-400 10^3/uL Mean Platelet Volume 9.2 7.4-10.4 FL Neutrophils (%) (Auto) 70 42-75 % Lymphocytes (%) (Auto) 21 12-44 % Monocytes (%) (Auto) 6 0-12 % Eosinophils (%) (Auto) 2 0-10 % Basophils (%) (Auto) 0 0-10 % Neutrophils # (Auto) 6.1 1.8-7.8 X 10^3 Lymphocytes # (Auto) 1.9 1.0-4.0 X 10^3 Monocytes # (Auto) 0.6 0.0-1.0 X 10^3 Eosinophils # (Auto) 0.2 0.0-0.3 10^3/uL Basophils # (Auto) 0.0 0.0-0.1 10^3/uL Prothrombin Time 12.8 12.2-14.7 SEC INR Comment 1.0 0.8-1.4 Activated Partial Thromboplast Time 36 H 24-35 SEC Sodium Level 139 135-145 MMOL/L Potassium Level 3.8 3.6-5.0 MMOL/L Chloride Level 104 98-107 MMOL/L Carbon Dioxide Level 23 21-32 MMOL/L Anion Gap 12 5-14 MMOL/L Blood Urea Nitrogen 7 7-18 MG/DL Creatinine 0.83 0.60-1.30 MG/DL Estimat Glomerular Filtration Rate > 60 BUN/Creatinine Ratio 8 Glucose Level 101 70-105 MG/DL Calcium Level 8.9 8.5-10.1 MG/DL Magnesium Level 2.1 1.8-2.4 MG/DL Total Bilirubin 0.4 0.1-1.0 MG/DL Aspartate Amino Transf (AST/SGOT) 54 H 5-34 U/L Alanine Aminotransferase (ALT/SGPT) 74 H 0-55 U/L Alkaline Phosphatase 86 40-136 U/L Troponin I < 0.30 <0.30 NG/ML B-Type Natriuretic Peptide < 10.0 <100.0 PG/ML Total Protein 8.0 6.4-8.2 GM/DL Albumin 3.9 3.2-4.5 GM/DL Serum Test, Qualitative NEGATIVE NEGATIVE My Orders Orders - MANNY PHAN DO Saline Lock/Iv-Start (11/28/17 20:35) Ekg Tracing (11/28/17 20:35) O2 (11/28/17 20:35) Monitor-Rhythm Ecg Trace Only (11/28/17 20:35) Ct Angio Chest W (11/28/17 20:35) BNP (11/28/17 20:35) Cbc With Automated Diff (11/28/17 20:35) Comprehensive Metabolic Panel (11/28/17 20:35) Hcg,Qualitative Serum (11/28/17 20:35) Magnesium (11/28/17 20:35) Protime With Inr (11/28/17 20:35) Partial Thromboplastin Time (11/28/17 20:35) Troponin I (11/28/17 20:35) Chest Pa/Lat (2 View) (11/28/17 20:35) Aspirin Chewable Tablet (Baby Aspirin Ch (11/28/17 20:45) Iohexol Injection (Omnipaque 350 Mg/Ml 1 (11/28/17 21:15) Sodium Chloride Flush (Catheter Flush Sy (11/28/17 21:15) Pharmacy Communication (Pharmacy Communi (11/28/17 21:05) Ceftriaxone Injection (Rocephin Injectio (11/28/17 22:00) Methylprednisolone Sod Succ (Solu-Medrol (11/28/17 21:46) Rx-Albuterol Inhaler (Rx-Proair) (11/28/17 22:00) Rt Request For Service (11/28/17 22:12) Ketorolac Injection (Toradol Injection) (11/28/17 22:30) Medications Given in ED Vital Signs/I&O Vital Sign - Last 12Hours 11/28/17 11/28/17 20:30 22:52 Temp 97.3 97.3 Pulse 109 85 Resp 16 16 B/P (MAP) 135/99 (111) Pulse Ox 100 100 O2 Delivery Room Air Capillary Refill : Less Than 3 Seconds Blood Pressure Mean: 111 Progress Note : Progress Note SYMPTOMS IMPROVED AT DISMISSAL NO HYPOXIA ECG Initial ECG Impression Date: Nov 28, 2017 Initial ECG Impression Time: 20:26 Initial ECG Rate: 101 Initial ECG Rhythm: Normal Sinus Initial ECG Impression: Nonspecific Changes Initial ECG Comparisson: No Previous ECG Available Diagnostic Imaging Comments CXR--NO ACUTE PROCESS, PER RADIOLOGIST REPORT CT CHEST ANGIOGRAM--NO P.E., SMALL PATCHY INFILTRATE LEFT POSTERIOR LUNG- POSSIBLE PNEUMONIA PER RADIOLOGIST REPORTS @ 2145 Reviewed: Reviewed by Me Departure Impression Impression: Primary Impression: Pneumonia Disposition: 01 HOME, SELF-CARE Condition: Stable Departure-Patient Inst. Referrals: EUGENE HARPER APRN (PCP/Family) Primary Care Physician Patient Instructions: Pneumonia, Adult (DC) Add. Discharge Instructions: LOTS OF CLEAR LIQUIDS TYLENOL NEEDED FOR PAIN FOLLOW UP WITH YOUR DR IN 3-4 DAYS FOR FURTHER CARE RETURN TO ER IF WORSE All discharge instructions reviewed with patient and/or family. Voiced understanding. Scripts Albuterol Sulfate (PROAIR HFA) 1 Puff Puff 2 PUFF IH Q4H for BREATHING, #1 GM Prov: MANNY PHAN DO 11/28/17 Guaifenesin/Dextromethorphan (Mucinex Dm ER 1,200-60 mg Tab) 1 Each Tbmp.12hr 1 EACH PO BID for 10 Days, #20 EA Prov: MANNY PHAN DO 11/28/17 Methylprednisolone (Medrol) 4 Mg Tab.ds.pk 4 MG PO UD, #1 PKG Prov: MANNY PHAN DO 11/28/17 Cefdinir (Cefdinir) 300 Mg Capsule 300 MG PO BID for FOR INFECTION, #20 CAP Prov: MANNY PHAN DO 11/28/17 MANNY PHAN DO Nov 28, 2017 22:12
[2017-11-28] MEDS ORDERED: KETOROLAC 30 MG/ML VIAL IVP ONE (22:30)
[2017-11-28 22:52] VITALS: BP 132/84
== END 2017-11-28 22:52 | disposition home or self-care (01) ==
LOC: EDUNIT# 19:54 → ER 19:56
DX: J18.9 Pneumonia, unspecified organism (principal); K21.9 Gastro-esophageal reflux disease without esophagitis; E03.9 Hypothyroidism, unspecified; E11.9 Type 2 diabetes mellitus without complications; E66.9 Obesity, unspecified; Z79.01 Long term (current) use of anticoagulants; Z98.51 Tubal ligation status; Z68.42 Body mass index [BMI] 45.0-49.9, adult; Z90.722 Acquired absence of ovaries, bilateral; Z86.718 Personal history of other venous thrombosis and embolism; Z87.448 Personal history of other diseases of urinary system
CPT/HCPCS: 36415; 71046; 71275; 80053; 83735; 83880; 84484; 84703; 85025; 85610; 85730; 93005; 93041

== ENCOUNTER 2018-03-21 15:02 | Outpatient (RCR) | payer OTHER ==
[2018-01-31 09:38] LABS: BASOPHILS # (AUTO) 0.1 10^3/uL (0.0-0.1); BASOPHILS % (AUTO) 1 % (0-10); EOSINOPHILS # (AUTO) 0.2 10^3/uL (0.0-0.3); EOSINOPHILS % (AUTO) 4 % (0-10); HEMATOCRIT 37 % (35-52); HEMOGLOBIN 11.6 G/DL (11.5-16.0); LYMPHOCYTES # (AUTO) 1.6 X 10^3 (1.0-4.0); LYMPHOCYTES % (AUTO) 24 % (12-44); MEAN CORPUSCULAR HEMOGLOBIN 26 PG (25-34); MEAN CORPUSCULAR HGB CONC 32 G/DL (32-36); MEAN CORPUSCULAR VOLUME 83 FL (80-99); MONOCYTES # (AUTO) 0.4 X 10^3 (0.0-1.0); MONOCYTES % (AUTO) 7 % (0-12); NEUTROPHILS # (AUTO) 4.3 X 10^3 (1.8-7.8); NEUTROPHILS % (AUTO) 65 % (42-75); PLATELET COUNT 428 10^3/uL (130-400); RED CELL DISTRIBUTION WIDTH 13.9 % (10.0-14.5); WHITE BLOOD COUNT 6.6 10^3/uL (4.3-11.0)
[2018-01-31 09:56] LABS: ALANINE AMINOTRANSFERASE 35 U/L (0-55); ALKALINE PHOSPHATASE 67 U/L (40-136); BILIRUBIN,TOTAL 0.7 MG/DL (0.1-1.0); BUN/CREATININE RATIO 15; CALCIUM 8.7 MG/DL (8.5-10.1); CARBON DIOXIDE 27 MMOL/L (21-32); CHLORIDE 105 MMOL/L (98-107); CREATININE SERUM 0.74 MG/DL (0.60-1.30); GFR ESTIMATED > 60; GLUCOSE 89 MG/DL (70-105); POTASSIUM 4.1 MMOL/L (3.6-5.0); SODIUM 137 MMOL/L (135-145); TOTAL PROTEIN 7.2 GM/DL (6.4-8.2)
[~2018-03-21 15:02] MED LIST changes: +CEFD300C3 PO; +GUAI1TBM19 PO; -METF1000 PO; +METF10002 PO; +METH4TAB PO; -PROC10TA; +PROC10TA10; +RT-ALBUINH IH
== END 2018-05-01 | disposition home or self-care (01) ==
LOC: ONC 15:02
PROVIDERS: ATTEND Internal Medicine Hematology & Oncology
DX: I26.99 Other pulmonary embolism without acute cor pulmonale (principal); I82.220 Acute embolism and thrombosis of inferior vena cava; I82.422 Acute embolism and thrombosis of left iliac vein; E03.9 Hypothyroidism, unspecified; Z79.01 Long term (current) use of anticoagulants; Z90.721 Acquired absence of ovaries, unilateral
CPT/HCPCS: 36415; 80053; 85025; 85300; 85303; 85306; 85610; 85613; 85705; 85730; 86146; 86147; 99213

== ENCOUNTER 2020-03-05 20:36 | Emergency (ER) | payer OTHER ==
[~2020-03-05] VITALS: Ht 157 cm; Wt 122.4 kg
[~2020-03-05 20:36] MED LIST changes: +METF-399 PO; -METF10002 PO; -TIZA4TAB3 PO; +TIZA4TAB4 PO
--- NOTE | 2020-03-05 20:54 | ED General ---
General Chief Complaint: General Problems/Pain Stated Complaint: HTN,R SIDED PAIN Nursing Triage Note: started having pain in right "lower lobe" this am when she woke up at 0500. taking a big breath makes it worse. Nursing Sepsis Screen: No Definite Risk Source of Information: Patient Exam Limitations: No Limitations History of Present Illness Date Seen by Provider: March 05, 2020 Time Seen by Provider: 20:52 Initial Comments To ER with right anterior lower chest pain that began early this morning upon awakening. Deep breathing makes it worse. No cough. History of pulmonary emboli. She has been subsequently taken off of anticoagulation. He does not have fevers chills cough or shortness of breath. Timing/Duration: 1-2 Days Severity: Moderate Associated Systoms: Cough Allergies and Home Medications Allergies Coded Allergies: No Known Drug Allergies (Unverified , 03/05/20) Home Medications Acetaminophen 500 Mg Tablet, 1,000 MG PO Q6H PRN for PAIN-MILD, (Reported) Albuterol Sulfate 1 Puff Puff, 2 PUFF IH Q4H Prescribed by: MANNY PHAN on 11/28/172210 Alprazolam 0.5 Mg Tablet, 0.5 MG PO BID PRN for ANXIETY, (Reported) Amitriptyline HCl 25 Mg Tablet, 25 MG PO HS, (Reported) Apixaban 5 Mg Tablet, 10 MG PO BID 10mg BID for 1 week then 5mg BID after Prescribed by: MARCIO NUNEZ on 08/12/171105 Cefdinir 300 Mg Capsule, 300 MG PO BID Prescribed by: MANNY PHAN on 11/28/172210 Cholecalciferol (Vitamin D3) 2,000 Unit Capsule, 2,000 UNIT PO HS, (Reported) Gabapentin 100 Mg Capsule, 100-300 MG PO TID PRN for NERVE PAIN, (Reported) Guaifenesin/Dextromethorphan 1 Each Tbmp.12hr, 1 EACH PO BID Prescribed by: MANNY PHAN on 11/28/172210 Hydrocodone Bit/Acetaminophen 1 Each Tablet, 1-2 TAB PO Q6H PRN for PAIN- MODERATE, (Reported) Ibuprofen 400 Mg Tablet, 400 MG PO Q6H PRN for PAIN Prescribed by: MARCIO NUNEZ on 08/12/17 110 Levothyroxine Sodium 25 Mcg Tablet, 25 MCG PO DAILY, (Reported) Methylprednisolone 4 Mg Tab.ds.pk, 4 MG PO UD Prescribed by: MANNY PHAN on 11/28/172210 Pantoprazole Sodium 40 Mg Tablet.dr, 40 MG PO DAILY, (Reported) Tizanidine HCl 4 Mg Tablet, 4-8 MG PO Q8H PRN for MUSCLE SPASMS, (Reported) Patient Home Medication List Home Medication List Reviewed: Yes Review of Systems Review of Systems Constitutional: see HPI EENTM: see HPI Respiratory: see HPI; No short of breath Cardiovascular: no symptoms reported Genitourinary: no symptoms reported Musculoskeletal: no symptoms reported Skin: no symptoms reported Psychiatric/Neurological: No Symptoms Reported Hematologic/Lymphatic: No Symptoms Reported Past Bdyeilx-Aswmoc-Vcjfnr Hx Patient Social History 2nd Hand Smoke Exposure: No Recent Foreign Travel: No Contact w/Someone Who Travel: No Recent Infectious Disease Expo: No Recent Hopitalizations: No Immunizations Up To Date Tetanus Booster (TDap): Unknown Seasonal Allergies Seasonal Allergies: No Past Medical History Surgeries: Yes (7# LEFT OVARIAN CYST + LEFT OOPHORECTOMY 2000; LATER RIGHT TUBAL LIGATION) Gallbladder, Oophorectomy, Tubal Ligation Respiratory: Yes Pulmonary Embolism Cardiac: Yes Deep Vein Thrombosis Neurological: Yes (NEUROPATHY IN FEET) Neuropathy Female Reproductive Disorders: Menstrual Problems, Ovarian Cyst, Polycystic Ovarian Dis Genitourinary: No Gastrointestinal: Yes Gastroesophageal Reflux Musculoskeletal: Yes (Sciatica) Chronic Back Pain Endocrine: Yes (PCOS, INSULIN RESISTANCE, OBESTITY, VITAMIN D DEFICIENCY) Hypothyroidsim, Diabetes, Non-Insulin dep HEENT: No Cancer: No Psychosocial: No Integumentary: No Blood Disorders: Yes (FACTOR 2 CLOTTING DISORDER;LEFT LEG DVT AND P.E. 07/2017) Adverse Reaction/Blood Tranf: No Family Medical History No Pertinent Family Hx Physical Exam Vital Signs Vital Signs - First Documented 03/05/20 20:43 Temp 36.8 Pulse 100 Resp 18 B/P (MAP) 143/95 (111) Pulse Ox 96 Capillary Refill : Less Than 3 Seconds Height, Weight, BMI Height: 5'2.00" Weight: 250lbs. 3.2oz. [id number]; 49.00 BMI Method:Stated General Appearance: No Apparent Distress, WD/WN Eyes: Bilateral Eye Normal Inspection, Bilateral Eye PERRL, Bilateral Eye EOMI HEENT: PERRL/EOMI, TMs Normal Neck: Full Range of Motion, Normal Inspection Respiratory: Normal Breath Sounds, No Accessory Muscle Use, No Respiratory Distress, Crackles (RLL) Cardiovascular: Regular Rate, Rhythm, Normal Peripheral Pulses Gastrointestinal: Normal Bowel Sounds, Non Tender, Soft Extremity: Normal Capillary Refill, Normal Inspection Neurologic/Psychiatric: Alert, Oriented x3 Skin: Normal Color, Warm/Dry Progress/Results/Core Measures Suspected Sepsis Recent Fever Within 48 Hours: No Infection Criteria Present: None New/Unexplained Altered Menta: No Sepsis Screen: No Definite Risk SIRS Temperature: Pulse: 100 Respiratory Rate: 18 Laboratory Tests 03/05/20 20:50: White Blood Count 8.9 Blood Pressure 143 /95 Mean: 111 Laboratory Tests 03/05/20 20:50: Creatinine 0.87, Platelet Count 355, Total Bilirubin 0.6 Results/Orders Lab Results Laboratory Tests Test 03/05/20 20:50 Range/Units White Blood Count 8.9 4.3-11.0 10^3/uL Red Blood Count 4.76 4.35-5.85 10^6/uL Hemoglobin 13.2 11.5-16.0 G/DL Hematocrit 41 35-52 % Mean Corpuscular Volume 86 80-99 FL Mean Corpuscular Hemoglobin 28 25-34 PG Mean Corpuscular Hemoglobin Concent 32 32-36 G/DL Red Cell Distribution Width 13.8 10.0-14.5 % Platelet Count 355 130-400 10^3/uL Mean Platelet Volume 9.0 7.4-10.4 FL Neutrophils (%) (Auto) 61 42-75 % Lymphocytes (%) (Auto) 30 12-44 % Monocytes (%) (Auto) 6 0-12 % Eosinophils (%) (Auto) 2 0-10 % Basophils (%) (Auto) 0 0-10 % Neutrophils # (Auto) 5.4 1.8-7.8 X 10^3 Lymphocytes # (Auto) 2.7 1.0-4.0 X 10^3 Monocytes # (Auto) 0.5 0.0-1.0 X 10^3 Eosinophils # (Auto) 0.2 0.0-0.3 10^3/uL Basophils # (Auto) 0.0 0.0-0.1 10^3/uL Sodium Level 143 135-145 MMOL/L Potassium Level 3.7 3.6-5.0 MMOL/L Chloride Level 106 98-107 MMOL/L Carbon Dioxide Level 24 21-32 MMOL/L Anion Gap 13 5-14 MMOL/L Blood Urea Nitrogen 11 7-18 MG/DL Creatinine 0.87 0.60-1.30 MG/DL Estimat Glomerular Filtration Rate > 60 BUN/Creatinine Ratio 13 Glucose Level 88 70-105 MG/DL Calcium Level 9.3 8.5-10.1 MG/DL Corrected Calcium 9.1 8.5-10.1 MG/DL Total Bilirubin 0.6 0.1-1.0 MG/DL Aspartate Amino Transf (AST/SGOT) 35 H 5-34 U/L Alanine Aminotransferase (ALT/SGPT) 63 H 0-55 U/L Alkaline Phosphatase 94 40-136 U/L Total Protein 7.9 6.4-8.2 GM/DL Albumin 4.3 3.2-4.5 GM/DL My Orders Orders - ROSALEE MARSHALL SALES PLANNING COORDINATOR Ct Angio Chest W (03/05/20 20:50) Cbc With Automated Diff (03/05/20 20:50) Comprehensive Metabolic Panel (03/05/20 20:50) Ed Iv/Invasive Line Start (03/05/20 20:50) Ketorolac Injection (Toradol Injection) (03/05/20 21:00) Iohexol Injection (Omnipaque 350 Mg/Ml 1 (03/05/20 21:30) Received Contrast (Hold Metformin- Contr (03/05/20 21:30) Ns (Ivpb) (Sodium Chloride 0.9% Ivpb Bag (03/05/20 21:30) Coronavirus Sars-Cov-2 So 2018 (03/05/20 21:48) BNP (03/05/20 21:49) Hs C Reactive Protein (03/05/20 21:49) Fibrin Degradation Products (03/05/20 21:49) LDH (03/05/20 21:49) Medications Given in ED Current Medications Medications Dose Ordered Sig/Wilmer Route Start Time Stop Time Status Last Admin Dose Admin Iohexol 100 ml ONCE ONCE IV 03/05/20 21:30 03/05/20 21:31 UNV 03/05/20 21:33 100 ML Ketorolac Tromethamine 15 mg ONCE ONCE IVP 03/05/20 21:00 03/05/20 21:01 DC 03/05/20 21:04 15 MG Sodium Chloride 100 ml ONCE ONCE IV 03/05/20 21:30 03/05/20 21:31 UNV 03/05/20 21:33 100 ML Vital Signs/I&O 03/05/20 20:43 Temp 36.8 Pulse 100 Resp 18 B/P (MAP) 143/95 (111) Pulse Ox 96 Capillary Refill : Less Than 3 Seconds Blood Pressure Mean: 111 Diagnostic Imaging Diagonstic Imaging: Xray, CT Plain Films/CT/US/NM/MRI: chest Comments NAME: MICHELLE PYLE [facility] REC#: [id number] PT STATUS: REG ER : 1980 PHYSICIAN: ROSALEE MARSHALL APRN ADMIT DATE: 03/05/20/ER Draft Date of Exam:03/05/20 CT ANGIO CHEST W PROCEDURE: CT angiography of the chest with contrast. TECHNIQUE: Multiple contiguous axial images were obtained through the chest after uneventful bolus administration of intravenous contrast. 3D reconstructed CTA MIP acquisitions were also performed. Auto Exposure Controls were utilized during the CT exam to meet ALARA standards for radiation dose reduction. INDICATION: Right lower lobe chest pain. Hypertension. Chest tightness and burning COMPARISON: 11/28/2017 FINDINGS: The pulmonary arteries are diagnostic to the proximal segmental level. There is increased noise due to body habitus. No filling defect is seen to indicate a pulmonary embolus. The cardiac silhouette is upper normal in size. No pericardial effusion is seen. The aorta appears normal in caliber. No mediastinal adenopathy is seen. There is mild gaseous distention of the esophagus. No pleural effusion or pneumothorax is seen. There is groundglass opacity seen throughout the lungs bilaterally. This may be accentuated by motion artifact. No acute osseous abnormality is seen. Imaged portions of the upper abdomen demonstrate no acute abnormality. There does appear to be hepatic steatosis. IMPRESSION: 1. No pulmonary embolus is seen. 2. Diffuse groundglass opacities bilaterally which are nonspecific and may be accentuated by lower lung volumes and motion. Edema is also in the differential. 3. Hepatic steatosis. Dictated on workstation # [id number] Dict: 03/05/[id number] Trans: 03/05/202138 [facility] [phone] Interpreted by: BARON IBARRA MD Electronically signed by: Departure Impression Primary Impression: Pleuritic chest pain Disposition: HOME, SELF-CARE Condition: Stable Departure-Patient Inst. Decision time for Depature: 21:48 Referrals: EUGENE HARPER APRN (PCP/Family) Primary Care Physician Patient Instructions: Pleuritic Chest Pain Add. Discharge Instructions: 1. Follow-up with your regular doctor next week recheck. Return to ER for any shortness of breath worsening symptoms or other concerns. Stay at home quaran tined until Covid results are returned which would be tomorrow evening. All discharge instructions reviewed with patient and/or family. Voiced understanding. ROSALEE MARSHALL APRN March 05, 2020 20:54
[2020-03-05] MEDS ORDERED: KETOROLAC 30 MG/ML VIAL IVP ONE (21:00)
[2020-03-05 21:01] LABS: BASOPHILS % (AUTO) 0 % (0-10); EOSINOPHILS # (AUTO) 0.2 10^3/uL (0.0-0.3); EOSINOPHILS % (AUTO) 2 % (0-10); HEMATOCRIT 41 % (35-52); HEMOGLOBIN 13.2 G/DL (11.5-16.0); LYMPHOCYTES # (AUTO) 2.7 X 10^3 (1.0-4.0); LYMPHOCYTES % (AUTO) 30 % (12-44); MEAN CORPUSCULAR HEMOGLOBIN 28 PG (25-34); MEAN CORPUSCULAR HGB CONC 32 G/DL (32-36); MEAN CORPUSCULAR VOLUME 86 FL (80-99); MONOCYTES # (AUTO) 0.5 X 10^3 (0.0-1.0); MONOCYTES % (AUTO) 6 % (0-12); NEUTROPHILS # (AUTO) 5.4 X 10^3 (1.8-7.8); NEUTROPHILS % (AUTO) 61 % (42-75); PLATELET COUNT 355 10^3/uL (130-400); RED CELL DISTRIBUTION WIDTH 13.8 % (10.0-14.5); WHITE BLOOD COUNT 8.9 10^3/uL (4.3-11.0)
[2020-03-05 21:21] LABS: ALANINE AMINOTRANSFERASE 63 U/L (0-55); ALBUMIN 4.3 GM/DL (3.2-4.5); ALKALINE PHOSPHATASE 94 U/L (40-136); BILIRUBIN,TOTAL 0.6 MG/DL (0.1-1.0); BUN/CREATININE RATIO 13; CALCIUM 9.3 MG/DL (8.5-10.1); CARBON DIOXIDE 24 MMOL/L (21-32); CHLORIDE 106 MMOL/L (98-107); CREATININE SERUM 0.87 MG/DL (0.60-1.30); GFR ESTIMATED > 60; GLUCOSE 88 MG/DL (70-105); POTASSIUM 3.7 MMOL/L (3.6-5.0); SODIUM 143 MMOL/L (135-145); TOTAL PROTEIN 7.9 GM/DL (6.4-8.2)
[2020-03-05] MEDS ORDERED: HOLD METFORMIN - RECEIVED CONTRAST 20 ML VIAL IV SCH (21:30)
[2020-03-05] MEDS ORDERED: IOHEXOL 350 MG/ML 100 ML (OMNIPAQUE 350) VIAL IV ONE (21:30)
[2020-03-05] MEDS ORDERED: NS 100 ML (IVPB) BAG IV ONE (21:30)
--- NOTE | 2020-03-05 21:39 | Diagnostic Imaging Report ---
PROCEDURE: CT angiography of the chest with contrast. TECHNIQUE: Multiple contiguous axial images were obtained through the chest after uneventful bolus administration of intravenous contrast. 3D reconstructed CTA MIP acquisitions were also performed. Auto Exposure Controls were utilized during the CT exam to meet ALARA standards for radiation dose reduction. INDICATION: Right lower lobe chest pain. Hypertension. Chest tightness and burning COMPARISON: 11/28/2017 FINDINGS: The pulmonary arteries are diagnostic to the proximal segmental level. There is increased noise due to body habitus. No filling defect is seen to indicate a pulmonary embolus. The cardiac silhouette is upper normal in size. No pericardial effusion is seen. The aorta appears normal in caliber. No mediastinal adenopathy is seen. There is mild gaseous distention of the esophagus. No pleural effusion or pneumothorax is seen. There is groundglass opacity seen throughout the lungs bilaterally. This may be accentuated by motion artifact. No acute osseous abnormality is seen. Imaged portions of the upper abdomen demonstrate no acute abnormality. There does appear to be hepatic steatosis. IMPRESSION: 1. No pulmonary embolus is seen. 2. Diffuse groundglass opacities bilaterally which are nonspecific and may be accentuated by lower lung volumes and motion. Edema is also in the differential. 3. Hepatic steatosis. Dictated by: Dictated on workstation # [id number]
--- OUTSIDE RECORDS SUMMARY | 2020-03-05 21:45 | XMS REPORT | Continuity of Care Document ---
Author Organization Unknown Address Unknown Phone Unavailable Allergies Active Description Code Type Severity Reaction Onset Reported/Identified Relationship to Patient Clinical Status Yes No Known Drug Allergies [id number] Drug Allergy Unknown N/A 07/29/2017 Medications There is no data. Problems Date Dx Coded Attending Type Code Diagnosis Diagnosed By 07/29/2017 OLAF PIERRE MD, Ot E03.9 HYPOTHYROIDISM, UNSPECIFIED 07/29/2017 OLAF PIERRE MD, Ot I26.99 OTHER PULMONARY EMBOLISM WITHOUT ACUTE C 07/29/2017 OLAF PIERRE MD, Ot K21.9 GASTRO-ESOPHAGEAL REFLUX DISEASE WITHOUT 07/29/2017 OLAF PIERRE MD, Ot M79.605 PAIN IN LEFT LEG 07/29/2017 OLAF PIERRE MD Ot Z79.84 [facility] (CURRENT) USE OF ORAL HYPOGLYC 07/29/2017 OLAF PIERRE MD Ot Z87.448 PERSONAL HISTORY OF OTHER DISEASES OF UR 07/29/2017 OLAF PIERRE MD Ot Z98.51 TUBAL LIGATION STATUS 08/03/2017 OLAF PIERRE MD, Ot E03.9 HYPOTHYROIDISM, UNSPECIFIED 08/03/2017 OLAF PIERRE MD Ot I26.99 OTHER PULMONARY EMBOLISM WITHOUT ACUTE C 08/03/2017 OLAF PIERRE MD, Ot K21.9 GASTRO-ESOPHAGEAL REFLUX DISEASE WITHOUT 08/03/2017 OLAF PIERRE MD Ot M79.605 PAIN IN LEFT LEG 08/03/2017 OLAF PIERRE MD, Ot 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 08/03/2017 OLAF PIERRE MD Ot Z87.448 PERSONAL HISTORY OF OTHER DISEASES OF UR 08/03/2017 OLAF PIERRE MD Ot Z98.51 TUBAL LIGATION STATUS 08/12/2017 RIGOBERTO SPEARS MD Ot E03 .9 HYPOTHYROIDISM, UNSPECIFIED 08/12/2017 RIGOBERTO SPEARS MD Ot E28 .2 POLYCYSTIC OVARIAN SYNDROME 08/12/2017 RIGOBERTO SPEARS MD Ot E66 .9 OBESITY, UNSPECIFIED 08/12/2017 RIGOBERTO SPEARS MD Ot I26.99 OTHER PULMONARY EMBOLISM WITHOUT ACUTE C 08/12/2017 RIGOBERTO SPEARS MD Ot I82.220 ACUTE EMBOLISM AND THROMBOSIS OF INFERIO 08/12/2017 RIGOBERTO SPEARS MD Ot I82.422 ACUTE EMBOLISM AND THROMBOSIS OF LEFT IL 08/12/2017 RIGOBERTO SPEARS MD Ot K21 .9 GASTRO-ESOPHAGEAL REFLUX DISEASE WITHOUT 08/12/2017 RIGOBERTO SPEARS MD Ot K44 .9 DIAPHRAGMATIC HERNIA WITHOUT OBSTRUCTION 08/12/2017 RIGOBERTO SPEARS MD Ot K76 .0 FATTY (CHANGE OF) LIVER, NOT ELSEWHERE C 08/12/2017 RIGOBERTO SPEARS MD Ot Z68.42 BODY MASS INDEX (BMI) 45.0-49.9, ADULT 08/12/2017 RIGOBERTO SPEARS MD Ot Z79.01 [facility] (CURRENT) USE OF ANTICOAGULANT 08/12/2017 RIGOBERTO SPEARS MD Ot Z84.89 FAMILY HISTORY OF OTHER SPECIFIED CONDIT 08/12/2017 RIGOBERTO SPEARS MD Ot Z90.721 ACQUIRED ABSENCE OF OVARIES, UNILATERAL 09/07/2017 TRUE TANG Ot E03.9 HYPOTHYROIDISM, UNSPECIFIED 09/07/2017 TRUE TANG Ot I26.99 OTHER PULMONARY EMBOLISM WITHOUT ACUTE C 09/07/2017 TRUE TANG Ot I82.220 ACUTE EMBOLISM AND THROMBOSIS OF INFERIO 09/07/2017 TRUE TANG Ot I82.422 ACUTE EMBOLISM AND THROMBOSIS OF LEFT IL 09/07/2017 RTUE TANG Ot 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 09/07/2017 TRUE TANG Ot Z90.721 ACQUIRED ABSENCE OF OVARIES, UNILATERAL 09/30/2017 TRUE TANG Ot E03.9 HYPOTHYROIDISM, UNSPECIFIED 09/30/2017 TRUE TANG Ot I26.99 OTHER PULMONARY EMBOLISM WITHOUT ACUTE C 09/30/2017 TRUE TANG Ot I82.220 ACUTE EMBOLISM AND THROMBOSIS OF INFERIO 09/30/2017 TRUE TANG Ot I82.422 ACUTE EMBOLISM AND THROMBOSIS OF LEFT IL 09/30/2017 TRUE TANG David Ot Z79.01 [facility] (CURRENT) USE OF ANTICOAGULANT 09/30/2017 TRUE TANG Ot Z90.721 ACQUIRED ABSENCE OF OVARIES, UNILATERAL 10/15/2017 TRUE TANG Ot E03.9 HYPOTHYROIDISM, UNSPECIFIED 10/15/2017 TRUE TANG David Ot I26.99 OTHER PULMONARY EMBOLISM WITHOUT ACUTE C 10/15/2017 TRUE TANG David Ot I82.220 ACUTE EMBOLISM AND THROMBOSIS OF INFERIO 10/15/2017 TRUE TANG N Ot I82.422 ACUTE EMBOLISM AND THROMBOSIS OF LEFT IL 10/15/2017 TRUE TANG N Ot Z79.01 [facility] (CURRENT) USE OF ANTICOAGULANT 10/15/2017 TRUE TANG David Ot Z90.721 ACQUIRED ABSENCE OF OVARIES, UNILATERAL 11/28/2017 SYLVESTER DO, MANYN K Ot E03.9 HYPOTHYROIDISM, UNSPECIFIED 11/28/2017 SYLVESTER DO, MANNY K Ot E11.9 TYPE 2 DIABETES MELLITUS WITHOUT COMPLIC 11/28/2017 SYLVESTER DO, MANNY K Ot E66.9 OBESITY, UNSPECIFIED 11/28/2017 SYLVESTER DO, MANNY K Ot J18.9 PNEUMONIA, UNSPECIFIED ORGANISM 11/28/2017 SYLVESTER DO, MANNY K Ot K21.9 GASTRO-ESOPHAGEAL REFLUX DISEASE WITHOUT 11/28/2017 SYLVESTER DO, MANNY K Ot R06.02 SHORTNESS OF BREATH 11/28/2017 SYLVESTER DO, MANNY K Ot Z68.42 BODY MASS INDEX (BMI) 45.0-49.9, ADULT 11/28/2017 SYLVESTER DO, MANNY K Ot Z79.01 [facility] (CURRENT) USE OF ANTICOAGULANT 11/28/2017 SYLVESTER DO, MANNY K Ot Z86.718 PERSONAL HISTORY OF OTHER VENOUS THROMBO 11/28/2017 SYLVESTER DO, MANNY K Ot Z87.448 PERSONAL HISTORY OF OTHER DISEASES OF UR 11/28/2017 SYLVESTER DO, MANNY K Ot Z90.722 ACQUIRED ABSENCE OF OVARIES, BILATERAL 11/28/2017 SYLVESTER DO, MANNY K Ot Z98.51 TUBAL LIGATION STATUS 11/28/2017 TRUE TANG David Ot E03.9 HYPOTHYROIDISM, UNSPECIFIED 11/28/2017 TRUE TANG David Ot I26.99 OTHER PULMONARY EMBOLISM WITHOUT ACUTE C 11/28/2017 KITTYTRUE N Ot I82.220 ACUTE EMBOLISM AND THROMBOSIS OF INFERIO 11/28/2017 KITTYTRUE STARR N Ot I82.422 ACUTE EMBOLISM AND THROMBOSIS OF LEFT IL 11/28/2017 KITTYTRUE STARR N Ot Z79.01 [facility] (CURRENT) USE OF ANTICOAGULANT 11/28/2017 TRUE TANG N Ot Z90.721 ACQUIRED ABSENCE OF OVARIES, UNILATERAL 12/05/2017 KITTYTRUE N Ot E03.9 HYPOTHYROIDISM, UNSPECIFIED 12/05/2017 KITTY, TRUE N Ot I26.99 OTHER PULMONARY EMBOLISM WITHOUT ACUTE C 12/05/2017 KITTY, TRUE N Ot I82.220 ACUTE EMBOLISM AND THROMBOSIS OF INFERIO 12/05/2017 KITTYTRUE N Ot I82.422 ACUTE EMBOLISM AND THROMBOSIS OF LEFT IL 12/05/2017 TRUE TANG N Ot 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 12/05/2017 KITTY, TRUE N Ot Z90.721 ACQUIRED ABSENCE OF OVARIES, UNILATERAL 12/06/2017 KITTYTRUE STARR N Ot E03.9 HYPOTHYROIDISM, UNSPECIFIED 12/06/2017 KITTY, TRUE N Ot I26.99 OTHER PULMONARY EMBOLISM WITHOUT ACUTE C 12/06/2017 KITTYTRUE N Ot I82.220 ACUTE EMBOLISM AND THROMBOSIS OF INFERIO 12/06/2017 KITTYTRUE N Ot I82.422 ACUTE EMBOLISM AND THROMBOSIS OF LEFT IL 12/06/2017 KITTYTRUE STARR N Ot 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 12/06/2017 TRUE TANG N Ot Z90.721 ACQUIRED ABSENCE OF OVARIES, UNILATERAL 04/19/2018 KITTYTRUE N Ot E03.9 HYPOTHYROIDISM, UNSPECIFIED 04/19/2018 KITTY, TREU N Ot I26.99 OTHER PULMONARY EMBOLISM WITHOUT ACUTE C 04/19/2018 KITTY, TRUE N Ot I82.220 ACUTE EMBOLISM AND THROMBOSIS OF INFERIO 04/19/2018 KITTY, BOBJONATHAN N Ot I82.422 ACUTE EMBOLISM AND THROMBOSIS OF LEFT IL 04/19/2018 KITTY, TRUE N Ot Z79.01 [facility] (CURRENT) USE OF ANTICOAGULANT 04/19/2018 KITTY, JAIRAN N Ot Z90.721 ACQUIRED ABSENCE OF OVARIES, UNILATERAL 04/26/2018 KITTY, TRUE N Ot E03.9 HYPOTHYROIDISM, UNSPECIFIED 04/26/2018 KITTY, BOBAN N Ot I26.99 OTHER PULMONARY EMBOLISM WITHOUT ACUTE C 04/26/2018 KITTY, BOBAN N Ot I82.220 ACUTE EMBOLISM AND THROMBOSIS OF INFERIO 04/26/2018 KITTY, BOBAN N Ot I82.422 ACUTE EMBOLISM AND THROMBOSIS OF LEFT IL 04/26/2018 KITTY, BOBAN N Ot Z79.01 [facility] (CURRENT) USE OF ANTICOAGULANT 04/26/2018 KITTY, BOBAN N Ot Z90.721 ACQUIRED ABSENCE OF OVARIES, UNILATERAL 04/26/2018 KITTY, BOBAN N Ot E03.9 HYPOTHYROIDISM, UNSPECIFIED 04/26/2018 KITTY, BOBAN N Ot I26.99 OTHER PULMONARY EMBOLISM WITHOUT ACUTE C 04/26/2018 KITTY, BOBAN N Ot I82.220 ACUTE EMBOLISM AND THROMBOSIS OF INFERIO 04/26/2018 KITTY, BOBAN N Ot I82.422 ACUTE EMBOLISM AND THROMBOSIS OF LEFT IL 04/26/2018 KITTY, BOBAN N Ot Z79.01 [facility] (CURRENT) USE OF ANTICOAGULANT 04/26/2018 KITTY, BOBAN N Ot Z90.721 ACQUIRED ABSENCE OF OVARIES, UNILATERAL 05/01/2018 KITTY, BOBJONATHAN N Ot E03.9 HYPOTHYROIDISM, UNSPECIFIED 05/01/2018 KITTY, BOBAN N Ot I26.99 OTHER PULMONARY EMBOLISM WITHOUT ACUTE C 05/01/2018 KITTY, BOBAN N Ot I82.220 ACUTE EMBOLISM AND THROMBOSIS OF INFERIO 05/01/2018 KITTY, BOBAN N Ot I82.422 ACUTE EMBOLISM AND THROMBOSIS OF LEFT IL 05/01/2018 KITTY, BOBAN N Ot 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 05/01/2018 KITTY, BOBAN N Ot Z90.721 ACQUIRED ABSENCE OF OVARIES, UNILATERAL 05/02/2018 KITTY, BOBAN N Ot E03.9 HYPOTHYROIDISM, UNSPECIFIED 05/02/2018 KITTY, BOBAN N Ot I26.99 OTHER PULMONARY EMBOLISM WITHOUT ACUTE C 05/02/2018 KITTY, BOBAN N Ot I82.220 ACUTE EMBOLISM AND THROMBOSIS OF INFERIO 05/02/2018 KITTY, BOBAN N Ot I82.422 ACUTE EMBOLISM AND THROMBOSIS OF LEFT IL 05/02/2018 TRUE TANG Ot Z79.01 [facility] (CURRENT) USE OF ANTICOAGULANT 05/02/2018 TRUE TANG Ot Z90.721 ACQUIRED ABSENCE OF OVARIES, UNILATERAL 05/08/2018 TRUE TANG Ot E03.9 HYPOTHYROIDISM, UNSPECIFIED 05/08/2018 TRUE TANG Ot I26.99 OTHER PULMONARY EMBOLISM WITHOUT ACUTE C 05/08/2018 TRUE TANG Ot I82.220 ACUTE EMBOLISM AND THROMBOSIS OF INFERIO 05/08/2018 TRUE TANG Ot I82.422 ACUTE EMBOLISM AND THROMBOSIS OF LEFT IL 05/08/2018 TRUE TANG Ot 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 Results Test Result Range Complete blood count (CBC) with automate d white blood cell (WBC) differential - 07/29/17 04:15 Blood leukocytes automated count (number/volume) 9.7 10*3/uL 4.3-11.0 Blood erythrocytes automated count (number/volume) 3.93 10*6/uL 4.35-5.85 Venous blood hemoglobin measurement (mass/volume) 10.8 g/dL 11.5-16.0 Blood hematocrit (volume fraction) 34 % 35-52 Automated erythrocyte mean corpuscular volume 85 [ foz_us] 80-99 Automated erythrocyte mean corpuscular h emoglobin (mass per erythrocyte) 28 pg 25-34 Automated erythrocyte mean corpuscular h emoglobin concentration measurement (mass/volume) 32 g/dL 32-36 Automated erythrocyte distribution width ratio 13. 2 % 10.0- 14.5 Automated blood platelet count (count/volume) 355 10*3/uL 130-400 Automated blood platelet mean volume measurement 9.9 [foz_us] 7.4-10.4 Automated blood neutrophils/100 leukocytes 71 % 42-75 Automated blood lymphocytes/100 leukocytes 19 % 12-44 Blood monocytes/100 leukocytes 8 % 0-12 Automated blood eosinophils/100 leukocytes 2 % 0-10 Automated blood basophils/100 leukocytes 0 % 0-10 Blood neutrophils automated count (number/volume) 6.9 10*3 1.8-7.8 Blood lymphocytes automated count (number/volume) 1.8 10*3 1.0-4.0 Blood monocytes automated count (number/volume) 0. 8 10*3 0.0-1.0 Automated eosinophil count 0.2 10*3/uL 0 .0-0.3 Automated blood basophil count (count/volume) 0.0 10*3/uL 0.0-0.1 Fibrin D-dimer FEU measurement in platel et poor plasma (mass/volume) - 07/29/17 04:15 Fibrin D-dimer FEU measurement in platelet poor plasma (mass/volume) 3.22 ug/mL 0.00-0.49 Comprehensive metabolic panel - 07/29/17 04:15 Serum or plasma sodium measurement (moles/volume) 135 mmol/L 135-145 Serum or plasma potassium measurement (moles/volume) 4.1 mmol/L 3.6-5.0 Serum or plasma chloride measurement (moles/volume) 103 mmol/L 98-107 Carbon dioxide 21 mmol/L 21-32 Serum or plasma anion gap determination (moles/volume) 11 mmol/L 5-14 Serum or plasma urea nitrogen measurement (mass/volume ) 16 mg/dL 7-18 Serum or plasma creatinine measurement (mass/volume) 0.83 mg/dL 0.60-1.30 Serum or plasma urea nitrogen/creatinine mass ratio 19 NRG Serum or plasma creatinine measurement w ith calculation of estimated glomerular filtration rate > NRG Serum or plasma glucose measurement (mass/volume) 93 mg/dL 70-105 Serum or plasma calcium measurement (mass/volume) 9.1 mg/dL 8.5-10.1 Serum or plasma total bilirubin measurement (mass/volu me) 0.4 mg/dL 0.1-1.0 Serum or plasma alkaline phosphatase fraaz surement (enzymatic activity/volume) 67 U/L 40-136 Serum or plasma aspartate aminotransfera se measurement (enzymatic activity/volume) 61 U/L 5-34 Serum or plasma alanine aminotransferase measurement (enzymatic activity/volume) 169 U/L 0-55 Serum or plasma protein measurement (mass/volume) 7.7 g/dL 6.4-8.2 Serum or plasma albumin measurement (mass/volume) 3.7 g/dL 3.2-4.5 Complete blood count (CBC) with automate d white blood cell (WBC) differential - 08/11/17 01:20 Blood leukocytes automated count (number/volume) 12.1 10*3/uL 4.3-11.0 Blood erythrocytes automated count (number/volume) 4.03 10*6/uL 4.35-5.85 Venous blood hemoglobin measurement (mass/volume) 10.9 g/dL 11.5-16.0 Blood hematocrit (volume fraction) 35 % 35-52 Automated erythrocyte mean corpuscular volume 87 [ foz_us] 80-99 Automated erythrocyte mean corpuscular h emoglobin (mass per erythrocyte) 27 pg 25-34 Automated erythrocyte mean corpuscular h emoglobin concentration measurement (mass/volume) 31 g/dL 32-36 Automated erythrocyte distribution width ratio 13. 9 % 10.0- 14.5 Automated blood platelet count (count/volume) 487 10*3/uL 130-400 Automated blood platelet mean volume measurement 8.8 [foz_us] 7.4-10.4 Automated blood neutrophils/100 leukocytes 71 % 42-75 Automated blood lymphocytes/100 leukocytes 21 % 12-44 Blood monocytes/100 leukocytes 5 % 0-12 Automated blood eosinophils/100 leukocytes 3 % 0-10 Automated blood basophils/100 leukocytes 1 % 0-10 Blood neutrophils automated count (number/volume) 8.6 10*3 1.8-7.8 Blood lymphocytes automated count (number/volume) 2.6 10*3 1.0-4.0 Blood monocytes automated count (number/volume) 0. 6 10*3 0.0-1.0 Automated eosinophil count 0.4 10*3/uL 0 .0-0.3 Automated blood basophil count (count/volume) 0.1 10*3/uL 0.0-0.1 PT panel in platelet poor plasma by coag ulation assay - 08/11/17 01:20 Prothrombin time (PT) in platelet poor plasma by coagu lation assay 13.6 s 12.2-14.7 INR in platelet poor plasma or blood by coagulation as say 1.0 0.8-1.4 Activated partial thromboplastin time (a PTT) in platelet poor plasma bycoagulation assay - 08/11/17 01:20 Activated partial thromboplastin time (a PTT) in platelet poor plasma bycoagulation assay 30 s 24-35 Comprehensive metabolic panel - 08/11/17 01:20 Serum or plasma sodium measurement (moles/volume) 139 mmol/L 135-145 Serum or plasma potassium measurement (moles/volume) 3.6 mmol/L 3.6-5.0 Serum or plasma chloride measurement (moles/volume) 104 mmol/L 98-107 Carbon dioxide 25 mmol/L 21-32 Serum or plasma anion gap determination (moles/volume) 10 mmol/L 5-14 Serum or plasma urea nitrogen measurement (mass/volume ) 13 mg/dL 7-18 Serum or plasma creatinine measurement (mass/volume) 0.78 mg/dL 0.60-1.30 Serum or plasma urea nitrogen/creatinine mass ratio 17 NRG Serum or plasma creatinine measurement w ith calculation of estimated glomerular filtration rate > NRG Serum or plasma glucose measurement (mass/volume) 96 mg/dL 70-105 Serum or plasma calcium measurement (mass/volume) 9.0 mg/dL 8.5-10.1 Serum or plasma total bilirubin measurement (mass/volu me) 0.7 mg/dL 0.1-1.0 Serum or plasma alkaline phosphatase faraz surement (enzymatic activity/volume) 85 U/L 40-136 Serum or plasma aspartate aminotransfera se measurement (enzymatic activity/volume) 37 U/L 5-34 Serum or plasma alanine aminotransferase measurement (enzymatic activity/volume) 81 U/L 0-55 Serum or plasma protein measurement (mass/volume) 8.1 g/dL 6.4-8.2 Serum or plasma albumin measurement (mass/volume) 4.0 g/dL 3.2-4.5 Activated partial thromboplastin time (a PTT) in platelet poor plasma bycoagulation assay - 08/11/17 05:48 Activated partial thromboplastin time (a PTT) in platelet poor plasma bycoagulation assay 65 s 24-35 Activated partial thromboplastin time (a PTT) in platelet poor plasma bycoagulation assay - 08/11/17 11:30 Activated partial thromboplastin time (a PTT) in platelet poor plasma bycoagulation assay 63 s 24-35 Blood or tissue F5 gene p.R506Q detectio n by molecular genetics method - 08/11/17 15:45 Blood or tissue F5 gene p.R506Q detectio n by molecular genetics method Negative Negative Coagulation factor 5 activated measureme nt (units/volume) in platelet poor plasma by coagulation assay See Footnote NRG Prothrombin gene [id number] mutation detect ion - 08/11/17 15:45 Prothrombin gene [id number] mutation detection SEE FO OTNOTE NRG Activated partial thromboplastin time (a PTT) in platelet poor plasma bycoagulation assay - 08/12/17 06:31 Activated partial thromboplastin time (a PTT) in platelet poor plasma bycoagulation assay 66 s 24-35 Complete blood count (CBC) with automate d white blood cell (WBC) differential - 11/28/17 20:35 Blood leukocytes automated count (number/volume) 8.8 10*3/uL 4.3-11.0 Blood erythrocytes automated count (number/volume) 4.16 10*6/uL 4.35-5.85 Venous blood hemoglobin measurement (mass/volume) 11.4 g/dL 11.5-16.0 Blood hematocrit (volume fraction) 35 % 35-52 Automated erythrocyte mean corpuscular volume 85 [ foz_us] 80-99 Automated erythrocyte mean corpuscular h emoglobin (mass per erythrocyte) 27 pg 25-34 Automated erythrocyte mean corpuscular h emoglobin concentration measurement (mass/volume) 32 g/dL 32-36 Automated erythrocyte distribution width ratio 13. 7 % 10.0- 14.5 Automated blood platelet count (count/volume) 433 10*3/uL 130-400 Automated blood platelet mean volume measurement 9.2 [foz_us] 7.4-10.4 Automated blood neutrophils/100 leukocytes 70 % 42-75 Automated blood lymphocytes/100 leukocytes 21 % 12-44 Blood monocytes/100 leukocytes 6 % 0-12 Automated blood eosinophils/100 leukocytes 2 % 0-10 Automated blood basophils/100 leukocytes 0 % 0-10 Blood neutrophils automated count (number/volume) 6.1 10*3 1.8-7.8 Blood lymphocytes automated count (number/volume) 1.9 10*3 1.0-4.0 Blood monocytes automated count (number/volume) 0. 6 10*3 0.0-1.0 Automated eosinophil count 0.2 10*3/uL 0 .0-0.3 Automated blood basophil count (count/volume) 0.0 10*3/uL 0.0-0.1 Serum or plasma choriogonadotropin (preg raul test) detection - 11/28/17 20:35 Serum or plasma choriogonadotropin ( test) de tection NEGATIVE NEGATIVE PT panel in platelet poor plasma by coag ulation assay - 11/28/17 20:35 Prothrombin time (PT) in platelet poor plasma by coagu lation assay 12.8 s 12.2-14.7 INR in platelet poor plasma or blood by coagulation as say 1.0 0.8-1.4 Activated partial thromboplastin time (a PTT) in platelet poor plasma bycoagulation assay - 11/28/17 20:35 Activated partial thromboplastin time (a PTT) in platelet poor plasma bycoagulation assay 36 s 24-35 Comprehensive metabolic panel - 11/28/17 20:35 Serum or plasma sodium measurement (moles/volume) 139 mmol/L 135-145 Serum or plasma potassium measurement (moles/volume) 3.8 mmol/L 3.6-5.0 Serum or plasma chloride measurement (moles/volume) 104 mmol/L 98-107 Carbon dioxide 23 mmol/L 21-32 Serum or plasma anion gap determination (moles/volume) 12 mmol/L 5-14 Serum or plasma urea nitrogen measurement (mass/volume ) 7 mg/dL 7-18 Serum or plasma creatinine measurement (mass/volume) 0.83 mg/dL 0.60-1.30 Serum or plasma urea nitrogen/creatinine mass ratio 8 NRG Serum or plasma creatinine measurement w ith calculation of estimated glomerular filtration rate > NRG Serum or plasma glucose measurement (mass/volume) 101 mg/dL 70-105 Serum or plasma calcium measurement (mass/volume) 8.9 mg/dL 8.5-10.1 Serum or plasma total bilirubin measurement (mass/volu me) 0.4 mg/dL 0.1-1.0 Serum or plasma alkaline phosphatase faraz surement (enzymatic activity/volume) 86 U/L 40-136 Serum or plasma aspartate aminotransfera se measurement (enzymatic activity/volume) 54 U/L 5-34 Serum or plasma alanine aminotransferase measurement (enzymatic activity/volume) 74 U/L 0-55 Serum or plasma protein measurement (mass/volume) 8.0 g/dL 6.4-8.2 Serum or plasma albumin measurement (mass/volume) 3.9 g/dL 3.2-4.5 Magnesium - 11/28/17 20:35 Magnesium 2.1 mg/dL 1.8-2.4 Serum or plasma lithium measurement (mol es/volume) - 11/28/17 20:35 BNP level < pg/mL <100.0 Serum or plasma troponin i.cardiac measu rement (mass/volume) - 11/28/17 20:35 Serum or plasma troponin i.cardiac measurement (mass/v olume) < ng/mL <0.30 Encounters ACCT No. Visit Date/Time Discharge Status Pt. Type Provider Facility Loc./Unit Complaint [id number] 05/02/2018 00:09:00 018 23:59:59 CLS Preadmit TRUE TANG [facility] ONC [id number] 03/21/2018 15:02:00 018 00:01:00 DIS Outpatient TRUE TANG [facility] ONC [id number] 09/06/2017 09:12:00 018 00:01:00 DIS Outpatient TRUE TANG [facility] ONC [id number] 11/28/2017 19:56:00 018 22:52:00 DIS Emergency SYLVESTER DO, MANNY K [facility] ER SOB, L SIDE PAIN OF [address]ON[address] ST, HX BLOOD CLOTS [id number] 08/11/2017 04:45:00 017 12:45:00 DIS Inpatient RIGOBERTO SPEARS MD [facility] 4TH IVC LEFT ILIAC THROMBOS IS ON ELIQUIS [id number] 08/11/2017 14:15:00 017 23:59:59 CLS Preadmit EUGENE HARPER APRN [facility] RAD OTHER PULMONARY EMBOLI SM WO ACUTE COR PULMONALE [id number] 07/29/2017 03:19:00 017 07:35:00 DIS Emergency OLAF PIERRE MD [facility] ER LEFT LEG SWOLLEN,DISCOLORED,NUMB
[2020-03-05 22:02] VITALS: BP 150/94
== END 2020-03-05 22:06 | disposition home or self-care (01) ==
LOC: EDUNIT# 20:36 → ER 20:38
DX: R07.81 Pleurodynia (principal); E11.40 Type 2 diabetes mellitus with diabetic neuropathy, unspecified; K21.9 Gastro-esophageal reflux disease without esophagitis; E66.9 Obesity, unspecified; Z79.01 Long term (current) use of anticoagulants; Z86.711 Personal history of pulmonary embolism; Z86.718 Personal history of other venous thrombosis and embolism; Z68.42 Body mass index [BMI] 45.0-49.9, adult
CPT/HCPCS: 36415; 71275; 80053; 83615; 83880; 85025; 85379; 86141; 87635

== ENCOUNTER 2020-05-15 05:37 | Outpatient (RCR) | payer OTHER ==
[~2020-05-15] VITALS: Ht 160 cm; Wt 129.1 kg
[2020-05-17] MEDS ORDERED: IBUP-1780 PO (11:07)
[2020-05-17] MEDS ORDERED: OXYC1TAB87 PO (11:07)
[2020-05-17] MEDS ORDERED: DOCU-143 PO (11:07)
== END 2020-05-15 09:24 | disposition home or self-care (01) ==
LOC: PREOP 05:37
PROVIDERS: ATTEND Obstetrics & Gynecology
DX: Z01.812 Encounter for preprocedural laboratory examination (principal); Z20.828 Contact with and (suspected) exposure to other viral communicable diseases; N95.0 Postmenopausal bleeding; R19.09 Other intra-abdominal and pelvic swelling, mass and lump; D64.9 Anemia, unspecified
CPT/HCPCS: 87635

== ENCOUNTER 2020-05-17 11:12 | Day surgery (SDC) | payer OTHER ==
[2020-05-17] VITALS (11 sets, daily range): BP systolic 127–149; BP diastolic 66–103
[~2020-05-17] VITALS: Ht 160 cm; Wt 129.1 kg
--- NOTE | 2020-05-17 11:05 | Progress Note-Pre Operative ---
Pre-Operative Progress Note H&P Reviewed The H&P was reviewed, patient examined and no changes noted. Date Seen by Provider: May 17, 2020 Time Seen by Provider: 12:40 Date H&P Reviewed: May 17, 2020 Time H&P Reviewed: 12:41 Pre-Operative Diagnosis: DUB/Menorrhagia/Mass LIANA ENRIQUEZ MD May 17, 2020 11:04
--- NOTE | 2020-05-17 11:05 | Progress Note-Post Operative ---
Post-Operative Progess Note Surgeon (s)/Ironer Hand (s) Surgeon LIANA ENRIQUEZ MD Ironer Hand: Aishwarya Pre-Operative Diagnosis DUB/Menorrhagia/Mass Post-Operative Diagnosis same Procedure & Operative Findings Date of Procedure 05/17/20 Procedure Performed/Findings tlh/bs/cystoscopy Anesthesia Type geta Estimated Blood Loss Estimated blood loss (mL): Minimal Specimens/Packing Specimens Removed tlh/bs LIANA ENRIQUEZ MD May 17, 2020 11:05
--- NOTE | 2020-05-17 11:08 | Discharge Inst-Surgical ---
Discharge Inst-Surgical Depart Medication/Instructions New, Converted or Re-Newed RX: RX on Chart Consults/Follow Up Patient Instructions: as directed Orders & Referrals Follow Up Appt: RTC on Wednesday May 20, 2020 at 930 AM for staple removal Call to make follow up appt. for patient in 4 weeks. Activity: Rest for 24 hours, than as tolerated. Wound Care: May remove Band-Aid tomorrow. Replace as desired. Keep incisions clean and dry. Wash daily with soap and water. Please call in RX to patient pharmacy. Diet: As tolerated-Clear Liquids only if nauseated. Tomorrow, may shower or tub bathe as desired. No driving for 24 hours, no alcoholic beverages for 24 hours, and nothing per vagina (no tampons, douching, or intercourse) for 8 weeks. Patient to return to the clinic as soon as possible for: Temperature greater than 101F, Severe Pain, Foul discharge from incision or vagina, Excessive Bleeding (more than a period). Activity Activity as Tolerated: No Diet Discharge Diet: No Restrictions LIANA ENRIQUEZ MD May 17, 2020 11:08
[~2020-05-17 11:12] MED LIST changes: +DOCU-143 PO; +IBUP-1780 PO; +OXYC1TAB87 PO
[2020-05-17] MEDS ORDERED: MEPERIDINE (DEMEROL) INJ 100 MG/ML IM PRN (11:30)
[2020-05-17] MEDS ORDERED: ceFAZolin INJECTION 1,000 MG in WATER (STERILE) FOR INJECTION 10 ML IV ONE (11:30)
[2020-05-17] MEDS ORDERED: PROMETHAZINE INJ 25 MG/ML (PHENERGAN) AMP IM PRN (11:30)
[2020-05-17] MEDS ORDERED: KETOROLAC 30 MG/ML VIAL IVP SCH (11:30)
[2020-05-17] MEDS ORDERED: MIDAZOLAM 2 MG/2 ML (VERSED) VIAL IV ONE (11:45)
[2020-05-17] MEDS: LACTATED RINGERS 1,000 ML IV PRN ×2 (11:45→13:36)
[2020-05-17] MEDS ORDERED: FAMOTIDINE 20MG/2ML IV (PEPCID) IV ONE (11:45)
[2020-05-17] MEDS ORDERED: ONDANSETRON 4 MG/2 ML (SDV) Z0FRAN IV ONE (11:45)
[2020-05-17] MEDS ORDERED: MIDAZOLAM 2 MG/2 ML (VERSED) VIAL ONE (11:47)
[2020-05-17] MEDS ORDERED: proPOfol 200 MG/20 ML (DIPRIVAN) VIAL IV ONE (11:48)
[2020-05-17] MEDS ORDERED: LIDOCAINE PF 2% 5 ML (XYLOCAINE) VIAL ONE (11:48)
[2020-05-17] MEDS ORDERED: fentaNYL INJECTION 100 MCG/2 ML AMP ONE (11:48)
[2020-05-17] MEDS ORDERED: BUP/EPI 0.5% 1:200,000 (SENSORCAINE) 30 ML VIAL ONE (11:53)
[2020-05-17 11:55] LABS: BASOPHILS # (AUTO) 0.1 10^3/uL (0.0-0.1); BASOPHILS % (AUTO) 1 % (0-10); EOSINOPHILS # (AUTO) 0.2 10^3/uL (0.0-0.3); EOSINOPHILS % (AUTO) 3 % (0-10); HEMATOCRIT 40 % (35-52); HEMOGLOBIN 12.9 G/DL (11.5-16.0); LYMPHOCYTES # (AUTO) 1.9 X 10^3 (1.0-4.0); LYMPHOCYTES % (AUTO) 27 % (12-44); MEAN CORPUSCULAR HEMOGLOBIN 28 PG (25-34); MEAN CORPUSCULAR HGB CONC 33 G/DL (32-36); MEAN CORPUSCULAR VOLUME 87 FL (80-99); MEAN PLATELET VOLUME 9.4 FL (7.4-10.4); MONOCYTES # (AUTO) 0.4 X 10^3 (0.0-1.0); MONOCYTES % (AUTO) 5 % (0-12); NEUTROPHILS # (AUTO) 4.4 X 10^3 (1.8-7.8); NEUTROPHILS % (AUTO) 64 % (42-75); PLATELET COUNT 411 10^3/uL (130-400); RED CELL DISTRIBUTION WIDTH 13.2 % (10.0-14.5); WHITE BLOOD COUNT 6.8 10^3/uL (4.3-11.0)
[2020-05-17] MEDS ORDERED: GLYCOPYRROLATE 0.2 MG/ML (ROBINUL) 2 ML VIAL ONE ×2 (11:55→14:44)
[2020-05-17] MEDS ORDERED: DEXAMETHASONE 10 MG/ML (DECADRON) 1 ML VIAL ONE (11:55)
[2020-05-17] MEDS ORDERED: ONDANSETRON 4 MG/2 ML (SDV) Z0FRAN ONE ×2 (11:55→14:53)
[2020-05-17] MEDS ORDERED: SEVOFLURANE (ULTANE) 15 ML INHAL SOLN ONE (11:55)
[2020-05-17] MEDS ORDERED: NEOSTIGMINE 3 MG/3 ML VIAL ONE ×2 (11:55→14:44)
[2020-05-17] MEDS ORDERED: ROCURONIUM 10 MG/ML 5 ML SYRINGE IV ONE ×2 (11:55→14:27)
--- OUTSIDE RECORDS SUMMARY | 2020-05-17 13:39 | XMS REPORT | Continuity of Care Document ---
Author Organization Unknown Address Unknown Phone Unavailable Allergies Active Description Code Type Severity Reaction Onset Reported/Identified Relationship to Patient Clinical Status Yes No Known Drug Allergies [id number] Drug Allergy Unknown N/A 03/05/2020 Yes latex [id number] Drug Allergy Unknown Rash 05/13/2020 Medications There is no data. Problems Date Dx Coded Attending Type Code Diagnosis Diagnosed By 07/29/2017 OLAF PIERRE MD, Ot E03.9 HYPOTHYROIDISM, UNSPECIFIED 07/29/2017 OLAF PIERRE MD, Ot I26.99 OTHER PULMONARY EMBOLISM WITHOUT ACUTE C 07/29/2017 OLAF PIERRE MD, Ot K21.9 GASTRO-ESOPHAGEAL REFLUX DISEASE WITHOUT 07/29/2017 OLAF PIERRE MD Ot M79.605 PAIN IN LEFT LEG 07/29/2017 OLAF PIERRE MD Ot Z79.84 [facility] (CURRENT) USE OF ORAL HYPOGLYC 07/29/2017 OLAF [...] PAIN IN LEFT LEG 08/03/2017 OLAF PIERRE MD Ot Z79.84 DEPOSIT CLERK (CURRENT) USE OF ORAL HYPOGLYC 08/03/2017 OLAF PIERRE MD Ot Z87.448 PERSONAL HISTORY OF OTHER DISEASES OF UR 08/03/2017 OLAF PIERRE MD, Ot Z98.51 TUBAL LIGATION STATUS 08/12/2017 RIGOBERTO [...] ADULT 08/12/2017 RIGOBERTO SPEARS MD Ot Z79.01 [facility] (CURRENT) USE OF ANTICOAGULANT 08/12/2017 RIGOBERTO SPEARS [...] EMBOLISM AND THROMBOSIS OF LEFT [place] 09/07/2017 TRUE TANG Ot Z79.01 DEPOSIT CLERK (CURRENT) USE OF ANTICOAGULANT 09/07/2017 TRUE TANG Ot Z90.721 ACQUIRED ABSENCE OF OVARIES, UNILATERAL 09/30/2017 TRUE TANG Ot E03.9 HYPOTHYROIDISM, UNSPECIFIED 09/30/2017 TRUE TANG Ot I26.99 OTHER PULMONARY EMBOLISM WITHOUT ACUTE C 09/30/2017 TRUE TANG Ot I82.220 ACUTE EMBOLISM AND THROMBOSIS OF INFERIO 09/30/2017 TRUE TANG Ot I82.422 ACUTE EMBOLISM AND THROMBOSIS OF LEFT [place] 09/30/2017 TRUE TANG David Ot Z79.01 DEPOSIT CLERK (CURRENT) USE OF ANTICOAGULANT 09/30/2017 TRUE TANG David Ot Z90.721 ACQUIRED ABSENCE OF OVARIES, UNILATERAL 10/15/2017 TRUE TANG Ot E03.9 HYPOTHYROIDISM, UNSPECIFIED 10/15/2017 TURE TANG Ot I26.99 OTHER PULMONARY EMBOLISM WITHOUT ACUTE C 10/15/2017 TRUE TANG David Ot I82.220 ACUTE EMBOLISM AND THROMBOSIS OF INFERIO 10/15/2017 TRUE TANG David Ot I82.422 ACUTE EMBOLISM AND THROMBOSIS OF LEFT [place] 10/15/2017 TRUE TANG David Ot Z79.01 DEPOSIT CLERK (CURRENT) USE OF ANTICOAGULANT 10/15/2017 TRUE TANG David Ot Z90.721 ACQUIRED ABSENCE OF OVARIES, UNILATERAL 11/28/2017 SYLVESTER DO, MANNY K Ot E03.9 HYPOTHYROIDISM, UNSPECIFIED 11/28/2017 SYLVESTER DO MANNY K Ot E11.9 TYPE 2 DIABETES [...] 11/28/2017 SYLVESTER DO, MANNY K Ot Z79.01 [facility] (CURRENT) USE OF ANTICOAGULANT 11/28/2017 SYLVESTER DO, MANNY K Ot Z86.718 PERSONAL HISTORY OF OTHER VENOUS THROMBO 11/28/2017 SYLVESTER DO MANNY K Ot Z87.448 PERSONAL HISTORY OF OTHER DISEASES OF UR 11/28/2017 SYLVESTER DO MANNY K Ot Z90.722 ACQUIRED ABSENCE OF OVARIES, BILATERAL 11/28/2017 SYLVESTER DO, MANNY K Ot Z98.51 TUBAL LIGATION STATUS 11/28/2017 TRUE TANG David Ot E03.9 HYPOTHYROIDISM, UNSPECIFIED 11/28/2017 KITTYTRUE STARR N Ot I26.99 OTHER PULMONARY EMBOLISM WITHOUT ACUTE C 11/28/2017 KITTY, TRUE N Ot I82.220 ACUTE EMBOLISM AND THROMBOSIS OF INFERIO 11/28/2017 KITTY, TRUE N Ot I82.422 ACUTE EMBOLISM AND THROMBOSIS OF LEFT [place] 11/28/2017 KITTYTRUE N Ot Z79.01 [facility] (CURRENT) USE OF ANTICOAGULANT 11/28/2017 KITTYJAIRAN N Ot Z90.721 ACQUIRED ABSENCE OF OVARIES, UNILATERAL 12/05/2017 KITTY, BOBJONATHAN N Ot E03.9 HYPOTHYROIDISM, UNSPECIFIED 12/05/2017 KITTY, JAIRAN N Ot I26.99 OTHER PULMONARY EMBOLISM WITHOUT ACUTE C 12/05/2017 KITTY, BOBAN N Ot I82.220 ACUTE EMBOLISM AND THROMBOSIS OF INFERIO 12/05/2017 KITTY, BOBAN N Ot I82.422 ACUTE EMBOLISM AND THROMBOSIS OF LEFT [place] 12/05/2017 KITTY, BOBJONATHAN N Ot Z79.01 DEPOSIT CLERK (CURRENT) USE OF ANTICOAGULANT 12/05/2017 KITTY, JAIRAN N Ot Z90.721 ACQUIRED ABSENCE OF OVARIES, UNILATERAL 12/06/2017 KITTY, TRUE N Ot E03.9 HYPOTHYROIDISM, UNSPECIFIED 12/06/2017 KITTY, TRUE N Ot I26.99 OTHER PULMONARY EMBOLISM WITHOUT ACUTE C 12/06/2017 KITTY, TRUE N Ot I82.220 ACUTE EMBOLISM AND THROMBOSIS OF INFERIO 12/06/2017 KITTYTRUE STARR N Ot I82.422 ACUTE EMBOLISM AND THROMBOSIS OF LEFT [place] 12/06/2017 KITTY, TRUE N Ot Z79.01 [facility] (CURRENT) USE OF ANTICOAGULANT 12/06/2017 KITTY, BOBAN N Ot Z90.721 ACQUIRED ABSENCE OF OVARIES, UNILATERAL 04/19/2018 KITTY, TRUE N Ot E03.9 HYPOTHYROIDISM, UNSPECIFIED 04/19/2018 KITTY, TRUE N Ot I26.99 OTHER PULMONARY EMBOLISM WITHOUT ACUTE C 04/19/2018 KITTY, BOBAN N Ot I82.220 ACUTE EMBOLISM AND THROMBOSIS OF INFERIO 04/19/2018 KITTY, BOBAN N Ot I82.422 ACUTE EMBOLISM AND THROMBOSIS OF LEFT [place] 04/19/2018 KITTY, TRUE N Ot Z79.01 [facility] (CURRENT) USE OF ANTICOAGULANT 04/19/2018 KITTY, BOBAN N Ot Z90.721 ACQUIRED ABSENCE OF OVARIES, UNILATERAL 04/26/2018 KITTYTRUE N Ot E03.9 HYPOTHYROIDISM, UNSPECIFIED 04/26/2018 KITTY, BOBAN N Ot I26.99 OTHER PULMONARY EMBOLISM WITHOUT ACUTE C 04/26/2018 KITTY, BOBAN N Ot I82.220 ACUTE EMBOLISM AND THROMBOSIS OF INFERIO 04/26/2018 KITTY, BOBAN N Ot I82.422 ACUTE EMBOLISM AND THROMBOSIS OF LEFT IL 04/26/2018 KITTY, BOBAN N Ot Z79.01 [facility] (CURRENT) USE OF ANTICOAGULANT 04/26/2018 KITTY, BOBAN [...] [place] 04/26/2018 KITTY, BOBAN N Ot Z79.01 [facility] (CURRENT) USE OF ANTICOAGULANT 04/26/2018 KITTY, BOBAN [...] [place] 05/01/2018 KITTY, BOBAN N Ot Z79.01 DEPOSIT CLERK (CURRENT) USE OF ANTICOAGULANT 05/01/2018 KITTY, BOBAN N Ot Z90.721 ACQUIRED ABSENCE OF OVARIES, UNILATERAL 05/02/2018 KITTY, BOBAN N Ot E03.9 HYPOTHYROIDISM, UNSPECIFIED 05/02/2018 KITTY, BOBAN N Ot I26.99 OTHER PULMONARY EMBOLISM WITHOUT ACUTE C 05/02/2018 KITTY, BOBAN N Ot I82.220 ACUTE EMBOLISM AND THROMBOSIS OF INFERIO 05/02/2018 KITTY, BOBAN N Ot I82.422 ACUTE EMBOLISM AND THROMBOSIS OF LEFT [place] 05/02/2018 TRUE TANG N Ot Z79.01 DEPOSIT CLERK (CURRENT) USE OF ANTICOAGULANT 05/02/2018 TRUE TANG N Ot Z90.721 ACQUIRED ABSENCE OF OVARIES, UNILATERAL 05/08/2018 TRUE TANG Ot E03.9 HYPOTHYROIDISM, UNSPECIFIED 05/08/2018 TRUE TANG N Ot I26.99 OTHER PULMONARY EMBOLISM WITHOUT ACUTE C 05/08/2018 TRUE TANG N Ot I82.220 ACUTE EMBOLISM AND THROMBOSIS OF INFERIO 05/08/2018 TRUE TANG N Ot I82.422 ACUTE EMBOLISM AND THROMBOSIS OF LEFT [place] 05/08/2018 TRUE TANG N Ot Z79.01 DEPOSIT CLERK (CURRENT) USE OF ANTICOAGULANT 05/08/2018 TRUE TANG N Ot Z90.721 ACQUIRED ABSENCE OF OVARIES, UNILATERAL 03/05/2020 TRUE TANG N Ot E03.9 HYPOTHYROIDISM, UNSPECIFIED 03/05/2020 TRUE TANG N Ot I26.99 OTHER PULMONARY EMBOLISM WITHOUT ACUTE C 03/05/2020 TRUE TANG N Ot I82.220 ACUTE EMBOLISM AND THROMBOSIS OF INFERIO 03/05/2020 TRUE TANG N Ot I82.422 ACUTE EMBOLISM AND THROMBOSIS OF LEFT [place] 03/05/2020 TRUE TANG N Ot Z79.01 DEPOSIT CLERK (CURRENT) USE OF ANTICOAGULANT 03/05/2020 TRUE TANG N Ot Z90.721 ACQUIRED ABSENCE OF OVARIES, UNILATERAL 03/07/2020 ROSALEE MARSHALL APRN Ot E11.40 TYPE 2 DIABETES MELLITUS WITH DIABETIC N 03/07/2020 ROSALEE MARSHALL APRN Ot E66 .9 OBESITY, UNSPECIFIED 03/07/2020 ROSALEE MARSHALL APRN Ot K21 .9 GASTRO-ESOPHAGEAL REFLUX DISEASE WITHOUT 03/07/2020 ROSALEE MARSHALL APRN Ot R07.81 PLEURODYNIA 03/07/2020 ROSALEE MARSHALL APRN Ot R07 .9 CHEST PAIN, UNSPECIFIED 03/07/2020 ROSALEE MARSHALL APRN Ot Z68.42 BODY MASS INDEX (BMI) 45.0-49.9, ADULT 03/07/2020 ROSALEE MARSHALL APRN Ot Z79.01 [facility] (CURRENT) USE OF ANTICOAGULANT 03/07/2020 ROSALEE MARSHALL APRN Ot Z86.711 PERSONAL HISTORY OF PULMONARY EMBOLISM 03/07/2020 ROSALEE MARSHALL APRN Ot Z86.718 PERSONAL HISTORY OF OTHER VENOUS THROMBO 04/03/2020 ROSALEE MARSHALL APRN Ot E11.40 TYPE 2 DIABETES MELLITUS WITH DIABETIC N 04/03/2020 ROSALEE MARSHALL APRN Ot E66 .9 OBESITY, UNSPECIFIED 04/03/2020 ROSALEE MARSHALL APRN Ot K21 .9 GASTRO-ESOPHAGEAL REFLUX DISEASE WITHOUT 04/03/2020 ROSALEE MARSHALL APRN Ot R07.81 PLEURODYNIA 04/03/2020 ROSALEE MARSHALL APRN Ot R07 .9 CHEST PAIN, UNSPECIFIED 04/03/2020 ROSALEE MARSHALL APRN Ot Z20.828 CONTACT W AND EXPOSURE TO OTH VIRAL COMM 04/03/2020 ROSALEE MARSHALL APRN Ot Z68.42 BODY MASS INDEX (BMI) 45.0-49.9, ADULT 04/03/2020 ROSALEE MARSHALL APRN Ot Z79.01 DEPOSIT CLERK (CURRENT) USE OF ANTICOAGULANT 04/03/2020 ROSALEE MARSHALL APRN Ot Z86.711 PERSONAL HISTORY OF PULMONARY EMBOLISM 04/03/2020 ROSALEE MARSHALL APRN Ot Z86.718 PERSONAL HISTORY OF OTHER VENOUS THROMBO 05/13/2020 TRUE TANG Ot E03.9 HYPOTHYROIDISM, UNSPECIFIED 05/13/2020 TRUE TANG Ot I26.99 OTHER PULMONARY EMBOLISM WITHOUT ACUTE C 05/13/2020 TRUE TANG Ot I82.220 ACUTE EMBOLISM AND THROMBOSIS OF INFERIO 05/13/2020 TRUE TANG Ot I82.422 ACUTE EMBOLISM AND THROMBOSIS OF LEFT [place] 05/13/2020 TRUE TANG Ot Z79.01 DEPOSIT CLERK (CURRENT) USE OF ANTICOAGULANT 05/13/2020 TRUE TANG Ot Z90.721 ACQUIRED ABSENCE OF [...] plasma alkaline phosphatase faraz surement (enzymatic activity/volume) 67 U/L 40-136 Serum [...] coagulation assay See Footnote NRG Prothrombin gene [id number] mutation detect ion - 08/11/17 15:45 Prothrombin gene [id number] mutation detection SEE FO OTNOTE NRG Activated [...] i.cardiac measurement (mass/v olume) < ng/mL <0.30 Complete blood count (CBC) with automate d white blood cell (WBC) differential - 03/05/20 20:50 Blood leukocytes automated count (number/volume) 8.9 10*3/uL 4.3-11.0 Blood erythrocytes automated count (number/volume) 4.76 10*6/uL 4.35-5.85 Venous blood hemoglobin measurement (mass/volume) 13.2 g/dL 11.5-16.0 Blood hematocrit (volume fraction) 41 % 35-52 Automated erythrocyte mean corpuscular volume 86 [ foz_us] 80-99 Automated erythrocyte mean corpuscular h emoglobin (mass per erythrocyte) 28 pg 25-34 Automated erythrocyte mean corpuscular h emoglobin concentration measurement (mass/volume) 32 g/dL 32-36 Automated erythrocyte distribution width ratio 13. 8 % 10.0- 14.5 Automated blood platelet count (count/volume) 355 10*3/uL 130-400 Automated blood platelet mean volume measurement 9.0 [foz_us] 7.4-10.4 Automated blood neutrophils/100 leukocytes 61 % 42-75 Automated blood lymphocytes/100 leukocytes 30 % 12-44 Blood monocytes/100 leukocytes 6 % 0-12 Automated blood eosinophils/100 leukocytes 2 % 0-10 Automated blood basophils/100 leukocytes 0 % 0-10 Blood neutrophils automated count (number/volume) 5.4 10*3 1.8-7.8 Blood lymphocytes automated count (number/volume) 2.7 10*3 1.0-4.0 Blood monocytes automated count (number/volume) 0. 5 10*3 0.0-1.0 Automated eosinophil count 0.2 10*3/uL 0 .0-0.3 Automated blood basophil count (count/volume) 0.0 10*3/uL 0.0-0.1 Comprehensive metabolic panel - 03/05/20 20:50 Serum or plasma sodium measurement (moles/volume) 143 mmol/L 135-145 Serum or plasma potassium measurement (moles/volume) 3.7 mmol/L 3.6-5.0 Serum or plasma chloride measurement (moles/volume) 106 mmol/L 98-107 Carbon dioxide 24 mmol/L 21-32 Serum or plasma anion gap determination (moles/volume) 13 mmol/L 5-14 Serum or plasma urea nitrogen measurement (mass/volume ) 11 mg/dL 7-18 Serum or plasma creatinine measurement (mass/volume) 0.87 mg/dL 0.60-1.30 Serum or plasma urea nitrogen/creatinine mass ratio 13 NRG Serum or plasma creatinine measurement w ith calculation of estimated glomerular filtration rate > NRG Serum or plasma glucose measurement (mass/volume) 88 mg/dL 70-105 Serum or plasma calcium measurement (mass/volume) 9.3 mg/dL 8.5-10.1 Serum or plasma total bilirubin measurement (mass/volu me) 0.6 mg/dL 0.1-1.0 Serum or plasma alkaline phosphatase faraz surement (enzymatic activity/volume) 94 U/L 40-136 Serum or plasma aspartate aminotransfera se measurement (enzymatic activity/volume) 35 U/L 5-34 Serum or plasma alanine aminotransferase measurement (enzymatic activity/volume) 63 U/L 0-55 Serum or plasma protein measurement (mass/volume) 7.9 g/dL 6.4-8.2 Serum or plasma albumin measurement (mass/volume) 4.3 g/dL 3.2-4.5 CALCIUM CORRECTED 9.1 mg/dL 8.5-10.1 Serum ragweed IgE antibody assay - 03/05 20:50 Serum ragweed IgE antibody assay 301 U/L 125-220 Serum or plasma C reactive protein measu rement (mass/volume) - 03/05/20 20:50 Serum or plasma C reactive protein measurement (mass/v olume) 1.18 mg/dL 0.00-0.50 Fibrin D-dimer FEU measurement in platel et poor plasma (mass/volume) - 03/05/20 20:50 Fibrin D-dimer FEU measurement in platelet poor plasma (mass/volume) 0.40 ug/mL 0.00-0.49 Serum or plasma lithium measurement (mol es/volume) - 03/05/20 20:50 BNP PT < 10.0 <100.0 Coronavirus SARS-CoV-2 SO 2018 - 0 22:10 Coronavirus Ab [Units/volume] in Serum Negative Negative Complete blood count (CBC) with automate d white blood cell (WBC) differential - 05/17/20 11:40 Blood leukocytes automated count (number/volume) 6.8 10*3/uL 4.3-11.0 Blood erythrocytes automated count (number/volume) 4.57 10*6/uL 4.35-5.85 Venous blood hemoglobin measurement (mass/volume) 12.9 g/dL 11.5-16.0 Blood hematocrit (volume fraction) 40 % 35-52 Automated erythrocyte mean corpuscular volume 87 [ foz_us] 80-99 Automated erythrocyte mean corpuscular h emoglobin (mass per erythrocyte) 28 pg 25-34 Automated erythrocyte mean corpuscular h emoglobin concentration measurement (mass/volume) 33 g/dL 32-36 Automated erythrocyte distribution width ratio 13. 2 % 10.0- 14.5 Automated blood platelet count (count/volume) 411 10*3/uL 130-400 Automated blood platelet mean volume measurement 9.4 [foz_us] 7.4-10.4 Automated blood neutrophils/100 leukocytes 64 % 42-75 Automated blood lymphocytes/100 leukocytes 27 % 12-44 Blood monocytes/100 leukocytes 5 % 0-12 Automated blood eosinophils/100 leukocytes 3 % 0-10 Automated blood basophils/100 leukocytes 1 % 0-10 Blood neutrophils automated count (number/volume) 4.4 10*3 1.8-7.8 Blood lymphocytes automated count (number/volume) 1.9 10*3 1.0-4.0 Blood monocytes automated count (number/volume) 0. 4 10*3 0.0-1.0 Automated eosinophil count 0.2 10*3/uL 0 .0-0.3 Automated blood basophil count (count/volume) 0.1 10*3/uL 0.0-0.1 Blood type T Indirect antibody screen pa benjamín - 05/17/20 11:40 WRISTBAND NUMBER [id number] NRG ABO+Rh group AP NRG Blood group antibody screen NEGATIVE NR G Encounters ACCT No. Visit Date/Time Discharge Status Pt. Type Provider Facility Loc./Unit Complaint [id number] 05/15/2020 05:37:00 020 09:24:00 DIS Outpatient LIANA ENRIQUEZ MD [facility] PREOP POST MENOPAUSAL BLEEDING [id number] 03/05/2020 20:38:00 020 22:06:00 DIS Outpatient ROSALEE MARSHALL APRN [facility] ER HTN,R SIDED PAIN [id number] 05/02/2018 00:09:00 018 23:59:59 CLS Preadmit TRUE TANG [facility] ONC [id number] 03/21/2018 15:02:00 018 00:01:00 DIS Outpatient TRUE TANG [facility] ONC [id number] 09/06/2017 09:12:00 018 00:01:00 DIS Outpatient TRUE TANG V [facility] ONC [id number] 11/28/2017 19:56:00 018 22:52:00 DIS Emergency SYLVESTER DO, MANNY K [facility] ER SOB, L SIDE PAIN OF YONY ST, HX BLOOD CLOTS [id number] 08/11/2017 04:45:00 12:45:00 DIS Inpatient TORY NATHAN, RIGOBERTO Solis [facility] 4TH IVC LEFT ILIAC THROMBOS IS ON ELIQUIS [id number] 08/11/2017 14:15:00 23:59:59 CLS Preadmit EUGENE HARPRE APRN [facility] RAD OTHER PULMONARY EMBOLI SM WO ACUTE COR PULMONALE [id number] 07/29/2017 03:19:00 07:35:00 DIS Emergency IGNACIO NATHAN, OLAF Montero [facility] ER LEFT LEG SWOLLEN,DISCOLORED,NUMB [id number] 05/17/2020 13:00:00 P EN Preadmit ZOE NATHAN, LIANA Connolly [facility] SDC POST MENOPAUSAL BLEEDING
[2020-05-17] MEDS ORDERED: KETOROLAC 30 MG/ML VIAL ONE (13:50)
[2020-05-17] MEDS ORDERED: DESFLURANE (SUPRANE) 15 ML INHAL SOLN ONE (13:52)
[2020-05-17] MEDS ORDERED: FUROSEMIDE 40 MG/4 ML INJ (LASIX) ONE (14:34)
[2020-05-17] MEDS ORDERED: INDIGO CARMINE 8 MG/ML 5 ML AMP ONE (14:34)
[2020-05-17] MEDS ORDERED: HYDROmorphone 2 MG/ML VIAL (DILAUDID) ONE ×2 (14:46→14:53)
[2020-05-17] MEDS ORDERED: morphine INJ 10 MG/ML 1ML (SYR OR VIAL) ONE (14:53)
[2020-05-17] MEDS ORDERED: HYDROmorphone 2 MG/ML VIAL (DILAUDID) IV ONE (15:00)
[2020-05-17] MEDS ORDERED: SUGAMMADEX 500 MG/5 ML VIAL (BRIDION) IV ONE (15:00)
[2020-05-17] MEDS ORDERED: ONDANSETRON 4 MG/2 ML (SDV) Z0FRAN IVP PRN (15:00)
--- NOTE | 2020-05-17 15:55 | NUR ---
MICHELLE PYLE presented to unit via BED from RECOVERY, accompanied by BELLO CORTES RN AFTER HAVING SURGERY PER DR. ENRIQUEZ. VS taken. REPORT RECEIVED.
[2020-05-17] MEDS ORDERED: D5 LR IV SOLUTION 1,000 ML IV ONE (16:08)
[2020-05-17] MEDS: D5 LR IV SOLUTION 1,000 ML IV SCH (16:14)
[2020-05-17] MEDS ORDERED: oxyCODONE/APAP 10/325MG (PERCOCET 10) TABLET PO ONE (18:21)
[2020-05-17] MEDS ORDERED: oxyCODONE/APAP 5/325MG (PERCOCET 5) TABLET ONE (18:24)
[2020-05-17] MEDS: oxyCODONE/APAP 5/325MG (PERCOCET 5) TABLET PO PRN (18:27)
[2020-05-17] MEDS: KETOROLAC 30 MG/ML VIAL IVP SCH (20:51)
[2020-05-17] MEDS: ONDANSETRON 4 MG/2 ML (SDV) Z0FRAN IVP PRN (22:07)
[2020-05-18] MEDS: D5 LR IV SOLUTION 1,000 ML IV SCH (00:06)
[2020-05-18 00:10] VITALS: BP 125/73
--- NOTE | 2020-05-18 02:13 | OPERATIVE REPORT ---
DATE OF SERVICE: 05/17/2020 PREOPERATIVE DIAGNOSES: Dysfunctional uterine bleeding, intrauterine mass and menorrhagia. POSTOPERATIVE DIAGNOSES: Dysfunctional uterine bleeding, intrauterine mass and menorrhagia. OPERATIVE PROCEDURE: Total laparoscopic hysterectomy with bilateral salpingectomy as well as cystoscopy. OPERATIVE DESCRIPTION: With the patient in supine position under satisfactory general anesthesia, she was repositioned in dorsal lithotomy position in the [facility] and prepped and draped in the usual fashion for abdominal and vaginal surgery using the da Juliana assistance. Weighted speculum placed in the posterior fornix of vagina, the cervix exposed and grasped anteriorly with single tooth tenaculum. Uterus sounded to 11 cm with uterine sound. Cervix was then serially dilated with Viet dilators to accommodate a ANTHONY II manipulator, which was placed using a 6 mm x 8 cm uterine probe and a 30 mm colpotomy ring. Sutures of #1 Vicryl placed at 3 and 9 o'clock position of the cervix to affix the uterus to the manipulator. The patient was brought in low dorsolithotomy position now after placing the Kimbrough catheter to dependent drainage. A 5 mm incision made at the patient's left upper quadrant at Kerr's point. Veress needle was placed through that incision into the abdominal cavity. Correct placement confirmed with water drop test. The abdomen was insufflated with 2.8 liters of carbon dioxide. The Veress needle was removed and a 5 mm Optiview laparoscopic port placed. The abdominal wall was transilluminated. A 12 mm port was placed through an incision of that size 8 cm superior to the umbilicus. An additional 8 mm ports were placed 9 cm lateral to the umbilicus at a level just about 3 cm above the umbilicus for the operative instruments. The patient was placed in Trendelenburg allowing the bowel to spill up out of the pelvis. The da Juliana column was advanced on the patient and docked and I retired to the da Juliana console after placing operative instruments. Using the vessel sealer on the right and a bipolar fenestrated grasper on the left, the pelvis was examined. The patient had had tubal sterilization. She also had her left tube and ovary removed. There was a partial hydrosalpinx on both sides. The right ovary appeared normal. There were some adhesions of the sigmoid, filmy adhesions in the pelvis. These were taken down to allow for complete visualization of the pelvis. The right ureter was seemed to be peristalsing easily. The left ureter could not be identified, but the left tube and ovary were already gone. The laparoscope was rotated and the appendix was not identified. An effort was made to see it, but it was not readily visible and we did not dig through the bowel looking for the appendix. Laparoscope was turned to the pelvis. The right fallopian tube was grasped and elevated. The mesosalpinx was clamped, cauterized and divided across to the uteroovarian pedicle, which was clamped, cauterized and divided as well as round ligament, the broad ligament and finally down on the cardinal ligament, allowing for conservation of the right ovary with removal of the right fallopian tube. The left pelvis, the round ligament, the broad ligament were clamped, cauterized and divided and then the leaves of the broad ligament were opened. Again, an effort was made to find the ureter, but it was not readily apparent. deeper into the pelvis and what I needed to dissect implanted on just confirming integrity by a cystoscopy afterwards. At this point, the anterior lower uterine segment peritoneum was exposed and incised with an EndoShears on the right arm. Then, the bladder was carefully dissected down off the lower uterine segment. Colpotomy incision was started at 12 o'clock position onto the colpotomy ring. That incision was continued circumferentially until the entire colpotomy ring was exposed and then the uterus with fallopian tubes still attached, was extracted through the vagina. The vaginal cuff was closed with a suture of 2-0 Vicryl V-Loc barbed suture. Incidental recurrence of it was cut into of the sutures. A third suture was used to complete the closure. All 3 needles were removed from the surgical field. With the vaginal cuff closed in the usual manner. Hemostasis was complete and no bleeding was noted and there was no abnormal pathology. Procedure laparoscopically was terminated. The operative instruments removed under direct vision as were the ports. The abdomen was evacuated of insufflating gas in the process of removing the ports. The skin incisions were closed with tami. The fascia at the supraumbilical incision was closed with [id number] suture of 2-0 Vicryl. The patient was placed in dorsal lithotomy position and cystoscopy was performed placing the cystoscope into the bladder using LR as a distending medium. The patient had been given an amp of indigo carmine and 20 mg of Lasix. Fairly prompt spill and efflux of blue urine from each ureteral orifice was noted. With integrity of the bladder and the ureters confirmed, the cystoscope was removed. Speculum was replaced in the vagina and the vaginal cuff was examined. It was completely hemostatic and closed, completely intact. Kimbrough catheter was left to dependent drainage. Sponge and needle counts were correct. Estimated blood loss was minimal. The patient was uneventfully awakened from general anesthesia and transferred to recovery in stable condition. Job ID: [id number] DocumentID: [id number] Dictated Date: 05/17/2020 14:49:12 Control Valve Mechanic Date: 05/18/2020 01:02:44 Dictated By: LIANA ENRIQUEZ MD
[2020-05-18] MEDS: KETOROLAC 30 MG/ML VIAL IVP SCH ×2 (02:37→08:13)
[2020-05-18] MEDS: ONDANSETRON 4 MG/2 ML (SDV) Z0FRAN IVP PRN ×2 (02:42→08:08)
[2020-05-18 04:45] VITALS: BP 108/59
[2020-05-18] MEDS: oxyCODONE/APAP 5/325MG (PERCOCET 5) TABLET PO PRN (08:02)
[2020-05-18 08:15] VITALS: BP 125/72
[2020-05-18] MEDS ORDERED: DOCUSATE SODIUM 100 MG (COLACE) CAP PO SCH (09:00)
--- NOTE | 2020-05-18 09:30 | Progress Note ---
Standard Progress Note Progress Notes/Assess & Plan Date Seen by a Provider: May 18, 2020 Time Seen by a Provider: 09:29 Progress/Assessment & Plan Patient is without complaint. She is ambulating and tolerating oral intake well she did have some nausea but that has improved. She has good pain control. Vital Signs Date Time Temp Pulse Resp B/P (MAP) Pulse Ox O2 Delivery O2 Flow Rate FiO2 05/18/20 04:45 36.2 71 16 108/59 (75) 95 Nasal Cannula 2.00 05/18/20 00:10 36.6 66 16 125/73 (90) 94 Room Air 05/17/20 20:59 Room Air 05/17/20 20:50 Nasal Cannula 2.00 05/17/20 20:50 36.5 63 16 143/86 (105) 95 Nasal Cannula 2.00 05/17/20 18:38 97 Nasal Cannula 2.00 05/17/20 18:36 98 Nasal Cannula 3.00 05/17/20 18:30 36.2 67 18 142/87 (105) 90 Room Air 05/17/20 16:54 97 OxyMask 4.00 05/17/20 16:50 36.1 57 18 132/66 (88) 98 OxyMask 5.00 05/17/20 16:15 OxyMask 5.00 05/17/20 15:58 36.3 57 18 138/92 (107) 98 OxyMask 5.00 05/17/20 15:40 36.3 15 134/94 (107) 96 OxyMask 5 05/17/20 15:40 OxyMask 5 05/17/20 15:30 11 138/90 (106) 94 OxyMask 5 05/17/20 15:25 OxyMask 5 05/17/20 15:20 10 139/86 (103) 100 OxyMask 5 05/17/20 15:10 OxyMask 8 05/17/20 15:10 15 138/92 (107) 99 OxyMask 5 05/17/20 15:00 12 139/102 (114) 100 OxyMask 8 05/17/20 14:56 OxyMask 8 05/17/20 14:56 36.5 13 127/87 (100) 100 OxyMask 8 05/17/20 11:20 37.2 81 20 149/103 (118) 96 Room Air I & O 05/18/20 07:00 Intake Total 3560 ml Output Total 3825 ml Balance -265 ml Vital signs are stable. Patient is afebrile. The abdomen is benign. Extremities show no clubbing cyanosis. There is no Homans sign. Assessment and plan postoperative day number 1 doing well. Plan is for routine convalescence care today with discharge home and follow-up in clinic Final Diagnosis Dysfunctional uterine bleeding/menorrhagia/pelvic mass LIANA ENRIQUEZ MD May 18, 2020 09:30
--- NOTE | 2020-05-18 10:08 | Anesthesia-General Post-Op ---
General Patient Condition Mental Status/LOC: Same as Preop Cardiovascular: Satisfactory Nausea/Vomiting: Absent Respiratory: Satisfactory Pain: Controlled Complications: Absent Post Op Complications Complications Pt reported significant PONV yesterday but it has resolved today Follow Up Care/Instructions Patient Instructions None needed. Anesthesia/Patient Condition Patient Condition Patient is doing well, no complaints, stable vital signs, no apparent adverse anesthesia problems. No complications reported per nursing. RUDY BAILEY CRNA May 18, 2020 10:08
[2020-05-18 12:50] VITALS: BP 118/77
[2020-05-18] MEDS ORDERED: ONDANSETRON 4 MG/2 ML (SDV) Z0FRAN IVP PRN (13:00)
[2020-05-18] MEDS ORDERED: IBUPROFEN 800 MG (MOTRIN) TAB PO SCH (14:00)
--- NOTE | 2020-05-18 14:19 | NUR ---
Pt stated much less pain and nausea today than last night. Rates pain 2-3 but remains slightly nauseated - although eating and drinking well. Pt requested IV Zofran after each meal. Ambulated well down 2 hallways late morning.
--- NOTE | 2020-05-18 15:00 | NUR ---
Sleeping. 1615 Awake and feeling well - ready for discharge. Home instructions given. Will need to wait on ride.
--- NOTE | 2020-05-18 17:21 | NUR ---
Called scripts to [facility].
--- NOTE | 2020-05-18 18:00 | NUR ---
To ER exit via wheelchair for discharge.
== END 2020-05-18 18:00 | disposition home or self-care (01) ==
LOC: SDC 11:12 → WS 16:13 → SDC 05-18 18:00
PROVIDERS: ATTEND Obstetrics & Gynecology
DX: N92.0 Excessive and frequent menstruation with regular cycle (principal); N84.0 Polyp of corpus uteri; N83.8 Other noninflammatory disorders of ovary, fallopian tube and broad ligament; I10 Essential (primary) hypertension; K21.9 Gastro-esophageal reflux disease without esophagitis; E66.01 Morbid (severe) obesity due to excess calories; Z68.43 Body mass index [BMI] 50.0-59.9, adult; Z91.040 Latex allergy status; Z79.899 Other long term (current) drug therapy
CPT/HCPCS: 36415; 84703; 85025; 86850; 86900; 86901; 87081; 88307; 94664

== ENCOUNTER → 2022-07-01 | Outpatient (CLI) | payer OTHER ==
[~2022-07-01] MED LIST changes: -PANT40TA3 PO; +PANT40TA52 PO; +TIZA-186 PO; -TIZA4TAB4 PO
--- NOTE | 2022-07-01 12:02 | Diagnostic Imaging Report ---
Indication: Left rib pain for one week 3 views of the left ribs do not show any displaced fractures. There is no effusion or pneumothorax. IMPRESSION: Negative left ribs. Dictated by: Dictated on workstation # [id number]
== END ==
LOC: RAD 11:21
PROVIDERS: ATTEND Physician Assistant
DX: R07.81 Pleurodynia (principal)
CPT/HCPCS: 71100